=== PATIENT | female | born 1995 | race Caucasian/White ===

== ENCOUNTER 2016-07-23 17:18 | Inpatient (IN) | payer BC ==
[~2016-07-23] VITALS: Ht 157.5 cm; Wt 55.9 kg
[2016-07-23] MEDS ORDERED: PRENAT PO (17:33)
[2016-07-23] MEDS: LACTATED RINGER'S 1,000 ML IV SCH ×2 (18:27→23:01)
--- NOTE | 2016-07-23 18:50 | RADRPT ---
PROCEDURE: US OB AND ULTRASOUND CERVIX. CLINICAL INDICATION: Size and dates , vaginal bleeding TECHNIQUE: Multiple sonographic images of the pelvis and gravid uterus were obtained. The images were reviewed on a PACS workstation. Transvaginal images of the cervix were also obtained. COMPARISON: No prior studies are available for comparison. FINDINGS: The cervix is closed with a length of 3.4 cm. There is a single viable intrauterine gestation. Cardiac activity is present with 128 beats per min [place]. There is a vertex presentation. The placenta is anterior. There is no evidence for an abruption or placenta previa. There is a decreased amount of amniotic fluid with a MVP= 1.2 cm. Measurements were made in order to determine age. The results are as follows: BPD =5.2 cm HC =19.4 cm AC =17.3 cm FL =3.7 cm Estimated gestational age of approximately 21 weeks and 6 days based on ultrasound measurements. Clinical age: 22 weeks and 2 days. The estimated date of delivery is 11/27/16, based on ultrasound measurements. The EFW = 459 g, 25%, based on LMP age. RPTAT: AA IMPRESSION: Single viable intrauterine gestation of approximately 21 weeks and 6 days based on ultrasound measu rements. Oligohydramnios. .Farhan Cruz MD, MD Date Time Electronically viewed and signed by .Farhan Cruz MD, MD on 07/23/2016 18:50 .S/
[2016-07-23 19:07] LABS: ADD SCAN DIFF NO
[2016-07-23 19:13] LABS: BASOPHILS % 0.3 % (0.0-2.0); EOSINOPHILS # 0.1 10^3/ul (0.0-0.5); EOSINOPHILS % 0.9 % (0.0-7.0); HEMATOCRIT 30.2 % (37.0-47.0); HEMOGLOBIN 10.9 g/dl (12.0-16.0); LYMPHOCYTES # 2.6 10^3/ul (0.8-2.9); LYMPHOCYTES % 21.1 % (18.0-55.0); MEAN CORPUSCULAR HEMOGLOBIN 31.1 pg (29.0-33.0); MEAN CORPUSCULAR HGB CONC 36.1 g/dl (32.0-37.0); MEAN CORPUSCULAR VOLUME 86.3 fl (72.0-104.0); MEAN PLATELET VOLUME 10.1 fl (7.4-10.4); MONOCYTE # 0.7 10^3/ul (0.3-0.9); MONOCYTES % 5.8 % (0.0-13.0); NEUTROPHIL # 8.7 10^3/ul (1.6-7.5); NEUTROPHILS % 71.2 % (30.0-74.0); PLATELET COUNT 242 10^3/UL (140-415); RED CELL DISTRIBUTION WIDTH 13.5 % (11.5-14.5); WHITE BLOOD COUNT 12.2 10^3/ul (4.8-10.8)
[2016-07-23 19:16] LABS: ADD UMIC YES; URINE BILIRUBIN (Dip) NEGATIVE (NEGATIVE); URINE BLOOD (Dip) 2+ (NEGATIVE); URINE COLOR LT. YELLOW (YELLOW); URINE GLUCOSE (Dip) NEGATIVE (NEGATIVE); URINE KETONES (Dip) NEGATIVE (NEGATIVE); URINE LEUKOCYTE ESTERASE (Dip) NEGATIVE (NEGATIVE); URINE NITRITE (Dip) NEGATIVE (NEGATIVE); URINE TOTAL PROTEIN (Dip) NEGATIVE (NEGATIVE); URINE UROBILINOGEN (Dip) 0.2 E.U./dL (0.1-1.0)
[2016-07-23 19:34] LABS: BACTERIA,URINE FEW
[2016-07-23 21:58] VITALS: BP 107/60; RESP 18
--- NOTE | 2016-07-23 22:39 | HP ---
Date/Time of Note Date/Time of Note DATE: 07/23/16 TIME: 22:15 OB - History Hx of Present Free Text/Dictation 20 Year-old with SIUP at 22 2/7 weeks presents with a chief complaint of light vaginal bleeding since 10:00 this morning. She has been receiving her care with Dr. Navarro. She states good movement. She denies nausea, vomiting, shortness of breath, chest pain, and abdominal pain between contractions, headache, visual changes. : 2 Para: 0 Spontaneous : 0 Therapeutic : 1 Care: Good Care Ultrasounds: Normal mid trimester US Obstetrical Complications: None Medical Complications: None, Musculoskeletal Other Concerns: Past Family/Social History * Past Medical, Surgical, Family and Obstetric Histories reviewed from chart. OB Admission Exam Vital Signs Vital Signs Vital Signs Date Time Temp Pulse Resp B/P Pulse Ox O2 Delivery O2 Flow Rate FiO2 07/23/16 21:58 97.9 18 107/60 Room Air Physical Exam HEENT: WNL Heart: Rhythm Normal Lungs: Clear Extremities: Normal Cervical Dilatation: Fingertip Membranes: Ruptured Amniotic Fluid: Clear Heart Rate: 130's Accelerations: Accelerations Present Decelerations: No Decelerations Varibility: Moderate Date/Time Contractions Began: Speculum exam: Light vaginal bleeding mix with AF. Cervix looks FT Intensity: Mild Last 72 hours Lab Results CBC & BMP 07/23/16 18:45 OB Assessment/Plan Other plan: 20 Year-old with SIUP at 22 2/7 weeks with possible PPROM - FHR: No sign of metabolic acidosis- Category I - Continious EFM, toco - CBC, blood type and screen - U/A and U/C - Blood type: A pos - Ampi and erythro per protocol - Consult with perinatologist tomorrow. - Please see the orders - Follow by her primary OB- Dr. Navarro Admission, procedures, expectations, risks and possible complications have been discussed in detail with the patient. Risk of delivery of premature fetus discussed. JACOB ATKINSON Jul 23, 2016 22:31
[2016-07-23 22:40] VITALS: Ht 157.5 cm; Wt 55.9 kg
[2016-07-23] MEDS: AMPICILLIN 2 GM/NS (PMX) 100 ML IV SCH (23:01)
--- NOTE | 2016-07-23 23:29 | TRIAGE ---
OB Triage Datetime Report Generated by CPN: 07/23/2016 23:29 Datetime: 07/23/2016 22:08 Assessment Type: Admission Assessment Maternal Assessment Level of Consciousness: Fully Conscious DTR's/Clonus: DTRs 2+; No Clonus Headache: Denies Blurred Vision: No Respiratory Effort: Unlabored; Regular Rhythm; Equal Expansion Breath Sounds, Left: Clear and Equal Breath Sounds, Right: Clear and Equal Nausea/Vomiting: Denies RUQ Epigastric Pain: Denies Lower Extremities Edema: None Degree: None Upper Extremities Edema: None Degree: None Facial Edema: None Fall Risk Assessment History of Falling: (0) No Secondary Diagnosis: (0) No Ambulatory Aid: (0) Bedrest/Nurse Assist IV Therapy: (20) Yes Gait: (0) Normal/Bedrest/Immobile Mental Status: (0) Oriented to Own Ability Fall Score: 20 Fall Risk Score Definition: No Risk: No action required Pain Assessment Pain Scale: 0 Pain Presence: None/Denies Pain Type: N/A Membrane Status: Intact Datetime: 07/23/2016 22:07 Time of Arrival: 07/23/2016 21:43 EGA: 22.2 Arrived By: Stretcher Arrived From: TRIAGE Datetime: 07/23/2016 21:43 Stage of : Antepartum Datetime: 07/23/2016 21:24 Membrane Status: Intact Datetime: 07/23/2016 21:00 Labor Evaluation Frequency: IRRITABILITY NOTED Monitor Mode: External Duration (sec)2399: 30-50 Quality: Mild Pattern: Normal: <= 5 Contractions in 10 Minutes Resting Tone [place]: Relaxed Datetime: 07/23/2016 20:04 Vaginal Exam Dilatation (cms): 0.0 Effacement (%): 0 Station: -3 Exam By: HADSUKHI Vaginal Bleeding: Small Cervix, Consistency: Firm Cervix, Position: Posterior Datetime: 07/23/2016 20:00 Labor Evaluation Frequency: IRRITABILITY NOTED Duration (sec)2399: 30-50 Datetime: 07/23/2016 19:33 Assessment Type: Triage Maternal Assessment Level of Consciousness: Fully Conscious DTR's/Clonus: DTRs 2+; No Clonus Headache: Denies Blurred Vision: No Respiratory Effort: Unlabored; Regular Rhythm; Equal Expansion Breath Sounds, Left: Clear and Equal Breath Sounds, Right: Clear and Equal Nausea/Vomiting: Denies RUQ Epigastric Pain: Denies Lower Extremities Edema: None Degree: None Upper Extremities Edema: None Degree: None Facial Edema: None Fall Risk Assessment History of Falling: (0) No Secondary Diagnosis: (0) No Ambulatory Aid: (0) Bedrest/Nurse Assist IV Therapy: (0) No Gait: (0) Normal/Bedrest/Immobile Mental Status: (0) Oriented to Own Ability Fall Score: 0 Fall Risk Score Definition: No Risk: No action required Datetime: 07/23/2016 18:07 Exam By: DR SHAMSIAN Datetime: 07/23/2016 17:58 Exam By: SLAYNE Datetime: 07/23/2016 17:26 Stage of : OB Triage Assessment Type: Triage Maternal Assessment Level of Consciousness: Fully Conscious DTR's/Clonus: DTRs 2+; No Clonus Headache: Denies Blurred Vision: No Respiratory Effort: Unlabored; Regular Rhythm; Equal Expansion Breath Sounds, Left: Clear and Equal Breath Sounds, Right: Clear and Equal Nausea/Vomiting: Denies RUQ Epigastric Pain: Denies Lower Extremities Edema: None Degree: None Upper Extremities Edema: None Degree: None Facial Edema: None Temperature Route: Axillary Fall Risk Assessment History of Falling: (0) No Secondary Diagnosis: (0) No Ambulatory Aid: (0) Bedrest/Nurse Assist IV Therapy: (0) No Gait: (0) Normal/Bedrest/Immobile Mental Status: (0) Oriented to Own Ability Fall Score: 0 Fall Risk Score Definition: No Risk: No action required Labor Evaluation Frequency: APPLIED/ADJUSTED Monitor Mode: External Resting Tone [place]: Relaxed Heart Rate FHR Baseline Rate: 125 Monitor Mode: External US Variability: Moderate 6-25 bpm Decelerations: Variable Category: Category II Comments: U/S DUE TO GESTATIONAL AGE Pain Assessment Pain Scale: 3 Pain Presence: Intermittent Pain Type: Cramping Pain Location: Back Pain Goal: 3 Pain Relief Measures: Comfort Measures Datetime: 07/23/2016 17:24 Time of Arrival: 07/23/2016 17:15 EGA: 22.2 Arrived By: Ambulance Arrived From: Home Chief Complaint: C/O VAG BLEEDING, ABDOMINAL PAIN THAT IS INTERMITTENT, DENIES LEAKING OF FLUID Movement: Present Contractions: Irregular Rupture of Membranes: Denies Vaginal Bleeding: Small Vaginal Discharge: Present Recent Sexual Intercouse: Denies Abdominal Trauma: Not Applicable Patient Complaints: Contractions Provider Notified: DR ATKINSON Initial Plan: MONITOR, IV HYDRATION, CL, CBC, UA, VE,
[2016-07-24] MEDS: ERYTHROMYCIN LACTOBIONATE 500 MG in SOD CHLORIDE 0.9% 100 ML IVPB SCH ×4 (00:10→18:08)
[2016-07-24 02:39] LABS: BARBITURATES Negative (NEGATIVE); BENZODIAZEPINES Negative (NEGATIVE); CANNABINOIDS Negative (NEGATIVE); COCAINE Negative (NEGATIVE); OPIATES Negative (NEGATIVE)
[2016-07-24] MEDS: AMPICILLIN 2 GM/NS (PMX) 100 ML IV SCH ×3 (05:21→19:47)
--- NOTE | 2016-07-24 10:12 | QN ---
Documentation Comment 22+wks GA EFW 459 grams with suspected PPROM,No CTX +FM No VB No CTXs [place] No CTXs --->Perinatalogy consult ---->Neonatalogy consult BRYAN BUTTS M.D. Jul 24, 2016 10:11
[2016-07-24] MEDS ORDERED: BETAMET NA PHOS/AC(6 MG/ML) 5ML INJ ONE (11:05)
[2016-07-24] MEDS ORDERED: BETAMET NA PHOS/AC(6 MG/ML) 5ML INJ IM ONE (11:30)
--- NOTE | 2016-07-24 11:51 | RADRPT ---
PROCEDURE: US OB. CLINICAL INDICATION: Leaking fluid TECHNIQUE: Multiple sonographic images of the pelvis were obtained. Transabdominal imaging only w as performed. The images were reviewed on a PACS workstation. COMPARISON: OB ultrasound dated 07/23/2016 FINDINGS: There is a single live intrauterine gestation. Cardiac activity is present with 139 beats per minut e. position is breech. Measurements were made in order to determine age. The results are as follows: BPD = 5.08 cm HC = 19.35 cm AC = 17.68 cm FL = 3.32 cm. Estimated gestational age of approximately 21 weeks 4 days. The estimated date of delivery is 11/30/2016. The EFW = 434.97 g, 11.2 %ile. The placenta is left lateral. There is no evidence for an abruption or placenta previa. There are no adnexal masses. The MVP measures 1.2 cm. IMPRESSION: 1. Single live intrauterine gestation of approximately 21 weeks 4 days, by ultrasound criteria. 2. The estimated date of delivery is 11/30/2016. 3. The estimated weight is 434.97 g, 11.2 %ile. 4. Oligohydramnios. The MVP measures 1.2 cm. No significant interval change. RPTAT: HH .Comfort Rodriguez MD, Date Time Electronically viewed and signed by .Comfort Rodriguez MD, on 07/24/2016 11:50 .G/
[2016-07-24] MEDS: LACTATED RINGER'S 1,000 ML IV SCH ×2 (12:05→23:18)
[2016-07-24] MEDS: ONDANSETRON 4 MG INJ IV PRN ×2 (12:21→18:29)
[2016-07-24] MEDS ORDERED: BETAMET NA PHOS/AC(6 MG/ML) 5ML INJ IM SCH (12:30)
[2016-07-24] MEDS ORDERED: MAGNESIUM SULFATE 4 GM in SOD CHLORIDE 0.9% 100 ML IV ONE (13:30)
[2016-07-24] MEDS ORDERED: MAGNESIUM SULFATE 4 GM/100 ML 100 ML IVPB ONE (14:00)
[2016-07-24] MEDS: MAGNESIUM SULFATE 20 GM/500 ML 500 ML IV SCH ×2 (14:44→23:24)
--- NOTE | 2016-07-24 15:24 | CONS ---
DATE OF ADMISSION: 07/23/2016 DATE OF CONSULTATION: 07/24/2016 REASON FOR CONSULTATION: labor with rupture of membranes, bleeding. I was asked to consult by Dr. Ang. The patient is a 20-year-old 2, para 0, AB 1 (spont aneous at about 3 weeks), who is admitted today at 22-3/7 weeks with contractions, bleeding, and possible leaking of amniotic fluid. She was started on magnesium, as well as erythromycin and ampicillin, and has received the first dose of betamethasone. She denies illnesses, medications, smoking, drugs, alcohol. She had a ultrasound on 06/26/2016 showing oligohydramnios and hyperextension of the neck, but no other definite abnormalities shown: Estimated weight today has been communicated as 459 grams. I spoke extensively to her with also her grandmother in attendance, although the grandmother does no t understand [place], and also 2 nurses in attendance. I explained that at 22-3/7 weeks, the chance s of survival are probably less than 5%. If surviving, severe risk for neurodevelopmental problems as well as vision and other problems. If the leak stops and contractions stop and the survives maybe by close to 24 weeks, we ca n re-consult and re-discuss the options. The chance that this baby would be responding to resuscita tion are slim in view of the gestational age, as well as the history of oligohydramnios. The placen ta is anterior and not previa per the report I have received. I answered all the questions she could ask, and I would thank Dr. Ang for the opportunity to as sist in the care of his family. Dictated By: JUNITO FOREMAN/NTS Conf#: [id number] DID#: [id number] CC: BRYAN ANG MD;*EndCC*
[2016-07-24] MEDS: DOCUSATE SODIUM 100 MG CAP PO SCH (18:14)
[2016-07-25] MEDS: AMPICILLIN 2 GM/NS (PMX) 100 ML IV SCH ×4 (00:33→17:38)
[2016-07-25] MEDS: ERYTHROMYCIN LACTOBIONATE 500 MG in SOD CHLORIDE 0.9% 100 ML IVPB SCH ×4 (01:46→20:53)
[2016-07-25] MEDS: LACTATED RINGER'S 1,000 ML IV SCH ×3 (02:30→17:40)
[2016-07-25] MEDS ORDERED: MISOPROSTOL 200 MCG TAB PR PRN (08:00)
[2016-07-25] MEDS ORDERED: METHYLERGONOVINE 0.2 MG INJ IM PRN (08:00)
[2016-07-25] MEDS ORDERED: OXYTOCIN 30 UNITS/LR 500 ML IV PRN (08:00)
[2016-07-25] MEDS ORDERED: CARBOPROST 250 MCG INJ IM PRN (08:00)
[2016-07-25] MEDS ORDERED: CEFAZOLIN 2 GM/50 ML (PMX) 50 ML IV SCH (08:00)
[2016-07-25] MEDS ORDERED: CEFAZOLIN 2 GM/50 ML (PMX) 50 ML IVPB ONE (08:03)
[2016-07-25] MEDS ORDERED: FENTAnyl 50 MCG/ML VIAL ONE (08:13)
[2016-07-25] MEDS ORDERED: morphine SULFATE/PF (10 MG/10 ML) INJ ONE (08:13)
[2016-07-25] MEDS: DOCUSATE SODIUM 100 MG CAP PO SCH (09:00)
[2016-07-25] MEDS ORDERED: BUTORPHANOL 2 MG INJ IV PRN (11:00)
--- NOTE | 2016-07-25 12:35 | QN ---
Documentation Comment I was called in am by RN when arrived to the hospital that the patient having D cells during heart monitoring down to 80s. Attended to the patient room. Patient was anxious. heart rates in 80s-90s but was recovering 200s. Patient was receiving oxygen. Review of history and her records showed that this 20-year-old has a is 22 weeks and 4 days. She had been seen at [facility] perinatology and had the anatomy ultrasound that showed severe oligohydramnios since a month ago. She had to reports from the ultrasound that both consistent with severe oligohydramnios and poor outcome. Apparently patient had been previously counseled by maternal medicine in [facility] regarding termination of and underwent genetic counseling. She declined at that time. She presented to the hospital, with complaint of contractions and was started by OB attending communications specialist on magnesium as well as received steroid although the fetus was nonviable. She apparently initially desired to save the baby as much as possible. She also received neonatology consultation that had bee extensively counseled regarding poorn outcome due to extreme prematurity in the context of severe oligohydramnios in the assisted gestational age. When I attended to the patient bedside , abnormal tracing and heart rate discussed with the patient and patient desired to proceed with section. That for that reason patient was transferred to the OR during observation in the operating room. Noted that they heart rate baseline is 100s and she had intermittent decelerations. Speculum examination the operating room performed and the cervix was noted about half a centimeter dilated and there was about 40 cc of serosanguineous fluid in the vagina. Patient was feeling cramps. Patient was very anxious declined having epidural and general anesthesia due to maternal risks without improving outcome with emergent delivery at this gestational age. she was asking again regarding the outcome of current . I explained to the patient due to severe prematurity and the fact that the baby is not viable, section carries the risks to the mom at this point with no improved and outcome. At that point patient decided to proceed with expectant management understanding that there is possibility of intrauterine demise with expectant management as well as poor outcome if she goes to spontaneous labor or she has abruption. I also discussed this case with Dr. Page perinatologist on-call and I asked Dr. Page the to evaluate the patient and give us her recommendation. Patient agreed that magnesium be stopped, as well as monitoring.. She accepted at this point to proceed with expectant management, and monitoring for evidence of abruption or infection. All her questions were answered. She will also see Dr. Nguyễn as well as rn clinical trials again. Clinical adoption social worker was consulted to evaluate the patient due to severe anxiety and panic attack. MARCO JOHANSEN MD Jul 25, 2016 12:35
[2016-07-25] MEDS ORDERED: BETAMET NA PHOS/AC(6 MG/ML) 5ML INJ IM ONE (17:30)
--- NOTE | 2016-07-25 23:06 | CONS ---
DATE OF ADMISSION: 07/23/2016 DATE OF CONSULTATION: 07/25/2016 HISTORY OF PRESENT ILLNESS: I received a call this morning from ____ who was a hospitalist sharron figueroa that the heart tone was not reassuring and patient has some evidence of bleeding and she dec ided for the , per patient request, understanding that the gestational age of 22 weeks and 5 days, essentially, this is a previable fetus. Afterward, I received a call again and, finally aft er 2 or calls, the decision had been made to postpone the for now after I went to the hosp ital to see the patient. Essentially, the patient is a 20-year-old G1 at 22 weeks and 5 days. She presented yesterday morning with complaint of vaginal bleeding. Ultrasound showed the fetus to be 4 49 grams and maximum vertical pocket was 2.5 cm, which is oligohydramnic and TAPIA were positive, whi ch is significant for rupture of membrane. The patient was occasionally having some spotting, but n ot bleeding. She was started on antibiotics, ampicillin and erythromycin, by the admitting physician. Recommenda tion of ____, she was given betamethasone, given the fact that the baby has 449 gram weight, sirena se to viability, but still previable. Given the fact that she received betamethasone after she star emery having some cramping, I made the decision to start the patient on magnesium sulfate. That was a ll yesterday. Today after the patient was taken out of the operating room, ____ spoke to the go ramsey and the decision had been made to not monitor the baby, as the fetus is nonviable at this poin t. I spoke to the patient in detail about the fact that without monitoring, essentially we are not able to assess the wellbeing of the child and the fetus may unfortunately without us knowing it. However, given the previability and the very, very, very poor morbidity associated with a fetus of that age, she understood that and she agreed with the decision of not monitoring of the fetus. How ever, monitoring will be resumed when the age of viability is resumed, which is 24 weeks, or t he fetus reaches the estimated weight of 500 grams. After that, she is not clear if she would like to have a if there is a nonreassuring heart tone after the monitoring is resumed at 24 weeks or at 500 grams. The decision will be made at that time again. She does under stand that she will need to be delivered earlier, if there is any evidence of chorioamnionitis or wilbur sun has vaginal bleeding, which would be an indication of the abruption. I do not believe she has had small abruption, so far; however, she has stopped bleeding, so we can monitor the patient right now . She is stable and there is no evidence of chorioamnionitis. NICU has seen the patient. PAST MEDICAL HISTORY AND SURGICAL HISTORY: Not significant. The patient has some anxiety disorder. REVIEW OF SYSTEMS: Negative except for what is mentioned above. PHYSICAL EXAMINATION: VITAL SIGNS: Stable. Physical examination deferred. heart tone again is not being monitored. She is having small contractions, which she feels. ASSESSMENT: A 20-year-old G1 at 22 weeks and 5 days with some episodes of vaginal bleeding indicati ve of small placental abruption, currently without bleeding. She had ultrasounds at [facility] x2 which owed the severe oligohydramnios initially, many weeks ago, and she was counseled about termination o f the and she declined at that time. She is currently on antibiotics for the latency. Sh corinne received the first dose of betamethasone and she will be receiving the second dose today. Magnesi um sulfate was stopped, which I do agree with. Since if this is a placenta abruption, it is better not to be masked. At this point, given the rupture of the membrane, there might be some element of vaginal bleeding. Again, magnesium sulfate would mask the abruption and should be avoided. Current ly, patient is very stable. She is feeling the contractions for which she is receiving pain medicat ion. She does understand that not monitoring the baby at this point may result in demise without us knowing it; however, she does understand that this child is previable at this point and the morbidi ty associated with delivery at this time is extremely high and she does agree with the plan of not m onitoring the baby. Baby should be monitored at the viable age, which is 24 weeks gestation, or when the baby reaches 50 0 grams. She has premature rupture of the membranes positive since yesterday; however, she has had ol igohydramnios for more 2 or 3 weeks ago based on ultrasound that was done at [facility] and she had decline d termination of the given the poor outcome with oligohydramnios at that point. RECOMMENDATIONS: 1. Continue with antibiotics for 7 days. Delivery is recommended if there is any evidence of chori oamnionitis or she has bleeding, which would emphasize definitive abruption. Pain medications for c ontractions; however, tocolysis I do not recommend at this point. Monitoring should be started at 24 weeks or estimated weight of 500 grams, whichever is coming first. At that time, patient should make a decision as would she like to have a section. Given th e poor status, most likely, which would result from long time oligohydramnios and also prematu rity up until 26 weeks. At that time, then is necessary as gestational age is more ____ to get her out. Please monitor this patient extremely closely for any evidence of change in vital signs or, bleeding which would be the only indication for the abruption and, if that is the case, then the is necessary to remove the placenta as soon as possible before the patient has to undergo the conseque nces of the placental abruption. If there is any evidence of demise and patient is hemodynami yessy stable and there is no evidence of heavy bleeding, you can consider vaginal delivery for her. However, if any instability, then is the best option. In 1 week, I do recommend to consult NICU again. The family welfare social work professor is available and psych will be apparently consulted after the patient delivers. Dictated By: JOELLE LAST MD ST/NTS Conf#: [id number] DID#: [id number] CC: Labor and Delivery; BRYAN BUTTS MD;*EndCC*
[2016-07-26] MEDS: AMPICILLIN 2 GM/NS (PMX) 100 ML IV SCH ×4 (00:08→18:06)
[2016-07-26] MEDS: DEXTROSE 5%-LR 1,000 ML IV SCH ×2 (02:00→10:05)
[2016-07-26] MEDS: LACTATED RINGER'S 1,000 ML IV SCH ×3 (02:30→20:19)
[2016-07-26] MEDS: ERYTHROMYCIN LACTOBIONATE 500 MG in SOD CHLORIDE 0.9% 100 ML IVPB SCH ×3 (06:45→13:01)
[2016-07-26] MEDS: ONDANSETRON 4 MG INJ IV PRN ×2 (07:29→15:08)
[2016-07-26] MEDS: DOCUSATE SODIUM 100 MG CAP PO SCH (09:00)
--- NOTE | 2016-07-26 11:44 | PN ---
Date/Time of Note Date/Time of Note DATE: 07/26/16 TIME: 11:31 OB Subjective Subjective Subjective July 26, 2016 Clinical consult This patient is a 20 years old primigravida 22 weeks and 6 days now this patient was transferred from [facility] to [facility] due to early and severe oligohydramnios as well as premature rupture of membrane This patient was seen in [facility] perinatology and fairly extensive study revealed a severe oligohydramnios the patient was consult regarding the termination of the but she did not accept. She was also offered to have a section due to the fact that the patient the baby does not have any chance for survival is born at this stage and with the obvious rupture of membrane and the chance of infection. She accepted to have a section she was taken to the area operating room and placed on the operative table once more she was informed that the is being done not to save the fetus but to terminate the to prevent any further complications and infections or bleeding. At this at this point patient refused to have a anesthesia under epidural general and decided not to have a section anyway she was transported transported back into the room in OB area. Dr. Page our perinatologist also discussed with her all angles of her condition including very poor chance of survival of the baby if it was born now or even a week from now . The plan is to wait for the baby to grow up to 500 g over 24 completed weeks in which case she will be treated as a patient with early labor. If any evidence of infection or hemorrhage this will be terminated either by section or induction of labor. These points and plan were described with the patient clearly and repeatedly. Laboratory Tests Test 07/25/16 11:50 Magnesium Level 3.3mg/dl Current Medications Medications (Trade) Dose Ordered Sig/Nahomi Route PRN Reason Start Time Stop Time Status Last Admin Dose Admin Lactated Ringer's 1,000 ml @ 125 mls/hr Q8H IV 07/23/16 18:30 07/25/16 17:40 Ampicillin 100 ml @ 100 mls/hr Q6 IV 07/23/16 22:30 07/26/16 06:45 Erythromycin Lactobionate/ Sodium Chloride (Erythromycin Lactobionate/NS) 100 ml @ 100 mls/hr Q6 IVPB 07/24/16 00:00 07/26/16 07:31 Docusate Sodium (Colace) 100 mg DAILY PO 07/24/16 09:00 07/24/16 18:14 Betamethasone Acet/Betameth SodPhos (Celestone Soluspan) 12 mg ONCE ONCE IM 07/24/16 11:30 07/24/16 11:30 DC Betamethasone Acet/Betameth SodPhos (Celestone Soluspan) 30 mg STK-MED ONCE .ROUTE 07/24/16 11:05 07/24/16 11:06 DC Betamethasone Acet/Betameth SodPhos (Celestone Soluspan) 12 mg ONCE IM 07/24/16 12:30 07/24/16 20:00 DC 07/24/16 12:04 Ondansetron HCl 4 mg 4 mg Q4H PRN IV NAUSEA AND/OR VOMITING 07/24/16 12:30 07/26/16 07:29 Magnesium Sulfate 4 gm/Sodium Chloride 108 ml @ 27 mls/hr ONCE ONCE IV 07/24/16 13:30 07/24/16 13:37 DC Magnesium Sulfate 500 ml @ 50 mls/hr Q10H IV 07/24/16 13:30 07/25/16 10:51 DC 07/24/16 23:24 Magnesium Sulfate 100 ml @ 200 mls/hr ONCE ONCE IVPB 07/24/16 14:00 07/24/16 14:29 DC 07/24/16 13:50 Cefazolin Sodium/ Dextrose 50 ml @ 100 mls/hr ONCE IV 07/25/16 08:00 07/25/16 08:58 DC Oxytocin/Lactated Ringer's 500 ml @ 0 mls/hr ONCE PRN IV For Hemorrhage Management 07/25/16 08:00 07/25/16 08:58 DC Methylergonovine Maleate (Methergine) 0.2 mg ONCE PRN IM VAGINAL BLEEDING 07/25/16 08:00 07/25/16 08:58 DC Carboprost Tromethamine (Hemabate) 250 mcg ONCE PRN IM VAGINAL BLEEDING 07/25/16 08:00 07/25/16 08:58 DC Misoprostol 1000 mcg 1,000 mcg ONCE PRN [place] VAGINAL BLEEDING 07/25/16 08:00 07/25/16 08:58 DC Cefazolin Sodium/ Dextrose (Ancef 2 Gm/50 ml (Pmx)) 50 ml @ ud STK-MED ONCE IVPB 07/25/16 08:03 07/25/16 08:04 DC Fentanyl (Sublimaze) 100 mcg STK-MED ONCE .ROUTE 07/25/16 08:13 07/25/16 08:14 DC Morphine Sulfate (Duramorph) 10 mg STK-MED ONCE .ROUTE 07/25/16 08:13 07/25/16 08:14 DC Butorphanol Tartrate (Stadol) 2 mg Q2H PRN IV PAIN 07/25/16 11:00 Betamethasone Acet/Betameth SodPhos 12 mg 12 mg ONCE ONCE IM 07/25/16 17:30 07/25/16 17:31 DC 07/25/16 17:19 Dextrose/Lactated Ringer's (D5-Lr) 1,000 ml @ 125 mls/hr Q8H IV 07/26/16 10:00 07/26/16 10:05 We will monitor her vital signs but not the heart tone End of dictation CYNDY MEJIA MD Jul 26, 2016 11:43
[2016-07-26] MEDS: GENTAMICIN 80 MG/NS (PMX) 50 ML IVPB SCH (22:16)
[2016-07-27] MEDS: AMPICILLIN 2 GM/NS (PMX) 100 ML IV SCH ×5 (00:14→23:53)
[2016-07-27] MEDS: GENTAMICIN 80 MG/NS (PMX) 50 ML IVPB SCH ×3 (06:10→21:43)
[2016-07-27] MEDS: LACTATED RINGER'S 1,000 ML IV SCH ×3 (06:11→21:26)
[2016-07-27] MEDS: DOCUSATE SODIUM 100 MG CAP PO SCH ×2 (09:00→16:49)
--- NOTE | 2016-07-27 14:48 | RADRPT ---
PROCEDURE: US OB. CLINICAL INDICATION: labor TECHNIQUE: Multiple sonographic images of the pelvis were obtained. Transabdominal imaging only w as performed. The images were reviewed on a PACS workstation. COMPARISON: 07/24/2016 FINDINGS: Single intrauterine gestation. Cephalic presentation. heart rate is 127 bpm. Measurements were made in order to determine age. The results are as follows: BPD = 5.08 cm HC = 19.59 cm AC = 16.80 cm FL = 3.34 cm Gestational age is 21 weeks 3 days and NITHIN is 12/04/2016 by ultrasound criteria. Gestational age is 22 weeks 6 days and NITHIN is 11/24/2016 by LMP. EFW = 411 g +/- 62 g (less than 3% by LMP %). The placenta is left lateral. There is no evidence for an abruption or placenta previa. EDUARD measures 2.6 cm, below normal limits. Maximum vertical pocket of fluid measures 0.9 cm. IMPRESSION: 1. Single live intrauterine gestation of approximately 21 weeks 3 days by ultrasound criteria. 2. There is severe oligohydramnios - EDUARD measures 2.6 cm. RPTAT: JJ .Abe Hodgson MD, MD Date Time Electronically viewed and signed by .Abe Hodgson MD, on 07/27/2016 14:48 .R/
--- NOTE | 2016-07-27 15:32 | QN ---
Documentation Comment 22+6wks GA ,the most recent EFW is 411 grams +FM, Currently no complaints VS stable Gen NAD Pelvic Deffered --->continue management as per perinatalogist --->patient's questions answered BRYAN BUTTS M.D. Jul 27, 2016 15:32
[2016-07-27] MEDS ORDERED: BISACODYL 10 MG SUPP PR PRN (21:30)
[2016-07-27] MEDS: MAGNESIUM HYDROXIDE 30ML CUP PO PRN (21:43)
[2016-07-28] MEDS: LACTATED RINGER'S 1,000 ML IV SCH ×3 (02:30→18:53)
[2016-07-28] MEDS: GENTAMICIN 80 MG/NS (PMX) 50 ML IVPB SCH ×3 (05:38→22:06)
[2016-07-28] MEDS: AMPICILLIN 2 GM/NS (PMX) 100 ML IV SCH ×5 (06:16→23:49)
[2016-07-28] MEDS: MAGNESIUM HYDROXIDE 30ML CUP PO PRN (08:56)
[2016-07-28] MEDS: DOCUSATE SODIUM 100 MG CAP PO SCH (08:56)
--- NOTE | 2016-07-28 13:56 | QN ---
Documentation Comment Laborist progress note: 20 y.o. with an IUP at 23 weeks with severe oligohydramnios present since at least 05/22, questionable PPROM, admitted with vaginal bleeding and contractions. Pt has been extensively counseled re: the grim prognosis for this baby with oligohydramnios at such an early age at [facility] and here and she is adamantly wanting to continue the . She is not having any more bleeding and contracts on occasion. Currently the plan is to have the pt on bedrest with IV hydration and NOT monitored until she reached 24 weeks and then will commence monitoring as she will then be considered technically viable. She has received steroids and had some magnesium as well. Her VS's are stable. The pt is only complaining of severe constipation. She has received milk of magnesium but only a few very hard balls of stool came out. Will try magnesium citrate now. P; Continue care. Commence monitoring at 24 weeks. Magnesium citrate, one bottle, now. JESSIE MONTELONGO MD Jul 28, 2016 13:56
[2016-07-28] MEDS ORDERED: MAGNESIUM CITRATE 300 ML BTL PO ONE (14:00)
[2016-07-29] MEDS: LACTATED RINGER'S 1,000 ML IV SCH ×4 (03:48→23:57)
[2016-07-29] MEDS: GENTAMICIN 80 MG/NS (PMX) 50 ML IVPB SCH ×3 (05:41→21:49)
[2016-07-29] MEDS: AMPICILLIN 2 GM/NS (PMX) 100 ML IV SCH ×4 (06:30→23:58)
[2016-07-29] MEDS: DOCUSATE SODIUM 100 MG CAP PO SCH (09:04)
--- NOTE | 2016-07-29 15:59 | QN ---
Documentation Comment Progress note: 20 y.o. with an IUP at 23w 1d with severe oligohydramnios present since at least 05/22, questionable PPROM, admitted with vaginal bleeding and contractions. Pt has been extensively counseled re: the grim prognosis for this baby with oligohydramnios at such an early age at [facility] and here and she is adamantly wanting to continue the . She is not having any more bleeding and contracts on occasion. Currently the plan is to have the pt on bedrest with IV hydration, IV antibiotics until complete a 7 day course and NOT monitored until she reached 24 weeks and then will commence monitoring as she will then be considered technically viable. She has received steroids and had some magnesium as well. Her VS's are stable. The pt had constipation but yesterday got cleaned out from the dose of magnesium citrate. P; Continue care. Commence monitoring at 24 weeks. Cont. ABX til complete 7 days. JESSIE MONTELONGO MD Jul 29, 2016 15:59
[2016-07-30] MEDS: GENTAMICIN 80 MG/NS (PMX) 50 ML IVPB SCH ×3 (05:38→22:15)
[2016-07-30] MEDS: AMPICILLIN 2 GM/NS (PMX) 100 ML IV SCH ×4 (06:30→23:41)
[2016-07-30] MEDS: DOCUSATE SODIUM 100 MG CAP PO SCH (09:01)
[2016-07-30] MEDS: LACTATED RINGER'S 1,000 ML IV SCH ×3 (11:54→23:40)
[2016-07-31] MEDS: GENTAMICIN 80 MG/NS (PMX) 50 ML IVPB SCH (05:38)
[2016-07-31] MEDS: AMPICILLIN 2 GM/NS (PMX) 100 ML IV SCH (05:38)
[2016-07-31] MEDS: FERROUS SULFATE (EC) 325 MG TAB PO SCH (09:19)
[2016-07-31] MEDS: DOCUSATE SODIUM 100 MG CAP PO SCH (09:19)
[2016-07-31] MEDS: MULTIVIT/MIN/FOLATE/IRON/PREN TAB PO SCH (09:19)
[2016-07-31] MEDS: LACTATED RINGER'S 1,000 ML IV SCH ×2 (11:08→18:30)
--- NOTE | 2016-07-31 18:38 | PN ---
Date/Time of Note Date/Time of Note DATE: 07/31/16 TIME: 18:33 OB Subjective Subjective Subjective July 31, 2016 Hospital consult This patient is a 20 years old primigravida 23 weeks and 3 days now this patient was transferred from [facility] to [facility] due to early and severe oligohydramnios as well as premature rupture of membrane This patient was seen in [facility] perinatology and fairly extensive study revealed a severe oligohydramnios. Patient was consult regarding the termination of the but she did not accept. She was also offered to have a section due to the fact that the baby did not seem to have any chance of survival if born at this stage and with the obvious rupture of membrane and the chance of infection. She accepted to have a section she was taken to the operating room and placed on the operative table once more she was informed that the is being done not to save the fetus but to terminate the to prevent any further complications and infections or bleeding, infarct it would be to protect the mother. Current Medications Medications (Trade) Dose Ordered Sig/Nahomi Route PRN Reason Start Time Stop Time Status Last Admin Dose Admin Lactated Ringer's 1,000 ml @ 125 mls/hr Q8H IV 07/23/16 18:30 Future Hold 07/31/16 11:08 Ampicillin 100 ml @ 100 mls/hr Q6 IV 07/23/16 22:30 07/31/16 10:54 DC 07/31/16 05:38 Erythromycin Lactobionate/ Sodium Chloride (Erythromycin Lactobionate/NS) 100 ml @ 100 mls/hr Q6 IVPB 07/24/16 00:00 07/26/16 14:31 DC 07/26/16 13:01 Docusate Sodium (Colace) 100 mg DAILY PO 07/24/16 09:00 07/31/16 09:19 Betamethasone Acet/Betameth SodPhos (Celestone Soluspan) 12 mg ONCE ONCE IM 07/24/16 11:30 07/24/16 11:30 DC Betamethasone Acet/Betameth SodPhos (Celestone Soluspan) 30 mg STK-MED ONCE .ROUTE 07/24/16 11:05 07/24/16 11:06 DC Betamethasone Acet/Betameth SodPhos (Celestone Soluspan) 12 mg ONCE IM 07/24/16 12:30 07/24/16 20:00 DC 07/24/16 12:04 Ondansetron HCl 4 mg 4 mg Q4H PRN IV NAUSEA AND/OR VOMITING 07/24/16 12:30 07/26/16 15:08 Magnesium Sulfate 4 gm/Sodium Chloride 108 ml @ 27 mls/hr ONCE ONCE IV 07/24/16 13:30 07/24/16 13:37 DC Magnesium Sulfate 500 ml @ 50 mls/hr Q10H IV 07/24/16 13:30 07/25/16 10:51 DC 07/24/16 23:24 Magnesium Sulfate 100 ml @ 200 mls/hr ONCE ONCE IVPB 07/24/16 14:00 07/24/16 14:29 DC 07/24/16 13:50 Cefazolin Sodium/ Dextrose 50 ml @ 100 mls/hr ONCE IV 07/25/16 08:00 07/25/16 08:58 DC Oxytocin/Lactated Ringer's 500 ml @ 0 mls/hr ONCE PRN IV For Hemorrhage Management 07/25/16 08:00 07/25/16 08:58 DC Methylergonovine Maleate (Methergine) 0.2 mg ONCE PRN IM VAGINAL BLEEDING 07/25/16 08:00 07/25/16 08:58 DC Carboprost Tromethamine (Hemabate) 250 mcg ONCE PRN IM VAGINAL BLEEDING 07/25/16 08:00 07/25/16 08:58 DC Misoprostol 1000 mcg 1,000 mcg ONCE PRN [place] VAGINAL BLEEDING 07/25/16 08:00 07/25/16 08:58 DC Cefazolin Sodium/ Dextrose (Ancef 2 Gm/50 ml (Pmx)) 50 ml @ ud STK-MED ONCE IVPB 07/25/16 08:03 07/25/16 08:04 DC Fentanyl (Sublimaze) 100 mcg STK-MED ONCE .ROUTE 07/25/16 08:13 07/25/16 08:14 DC Morphine Sulfate (Duramorph) 10 mg STK-MED ONCE .ROUTE 07/25/16 08:13 07/25/16 08:14 DC Butorphanol Tartrate (Stadol) 2 mg Q2H PRN IV PAIN 07/25/16 11:00 Betamethasone Acet/Betameth SodPhos 12 mg 12 mg ONCE ONCE IM 07/25/16 17:30 07/25/16 17:31 DC 07/25/16 17:19 Dextrose/Lactated Ringer's 1,000 ml @ 125 mls/hr Q8H IV 07/26/16 10:00 07/27/16 21:38 DC 07/26/16 10:05 Gentamicin Sulfate (Gentamicin) 50 ml @ 104 mls/hr Q8H IVPB 07/26/16 22:00 07/31/16 10:55 DC 07/31/16 05:38 Magnesium Hydroxide (Milk Of Mag) 30 ml BID PRN PO CONSTIPATION 07/27/16 21:30 07/28/16 08:56 Bisacodyl (Dulcolax Supp) 10 mg DAILY PRN [place] CONSTIPATION 07/27/16 21:30 Magnesium Citrate (Citroma) 300 ml NOW ONCE PO 07/28/16 14:00 07/28/16 14:01 DC 07/28/16 14:16 Miscellaneous Information (*Rx Drug Level Order Reminder*) GENTAMICIN TROUGH AT 2... ONCE XX 07/29/16 18:00 07/29/16 23:30 DC Prenat Multivit/ Jewel Diameter Gauger/Iron/Folic Ac ( S) 1 tab DAILY PO 07/31/16 09:00 07/31/16 09:19 Ferrous Sulfate (Ferrous Sulfate (Ec)) 325 mg DAILY PO 07/31/16 09:00 07/31/16 09:19 Today she is stable no fever.. heart tone is normal On exam her abdomen is soft. No evidence of contraction. heart tone is normal No calf tenderness Disposition: Her antibiotic was stopped this morning. She will continue hospital bed rest at least till age of 26 week CYNDY MEJIA MD Jul 31, 2016 18:37
--- NOTE | 2016-08-01 09:19 | QN ---
Documentation Comment Laborist- Antepartum Rounding S: Pt doing well. Denies c/o- no further vaginal bleeding, no LOF, rare UCs. Notices FM moreso at night. O: 98.1 103/42 77 Gen: asleep in bed, easily arousable, pleasant CV: RRR, nl s1s2 Resp: CTAB Abd: soft, NT, NABS Ext: BLE symmetric, nontender, no edema HD#10 for 20yo at 23+4 with anxiety admitted with vaginal bleeding and ? PPROM in the setting of known severe oligohydramnios (EDUARD 2.6cm). No e/o PTL, abruption or chorioamnionitis. Pt s/p Magnesium Sulfate, latency Abx and BMZ course. ->continue expectant management ->Encourage some ambulation, SCDs while in bed ->Re-consult NICU at 24wks GA when resuming monitoring per MFM recommendations ->Repeat growth U/S at 24wks as well for EFW ->Pt s/p MFM consult and extensive counseling regarding poor prognosis of fetus. Pt would like to continue ->Pt s/p [employer] STORE CLERK consult for extensive psychosocial concerns JOSE KUMAR MD Aug 01, 2016 09:19
[2016-08-01] MEDS: FERROUS SULFATE (EC) 325 MG TAB PO SCH (09:22)
[2016-08-01] MEDS: DOCUSATE SODIUM 100 MG CAP PO SCH (09:22)
[2016-08-01] MEDS: MULTIVIT/MIN/FOLATE/IRON/PREN TAB PO SCH (09:22)
[2016-08-02] MEDS: DOCUSATE SODIUM 100 MG CAP PO SCH (08:55)
[2016-08-02] MEDS: FERROUS SULFATE (EC) 325 MG TAB PO SCH (08:55)
[2016-08-02] MEDS: MULTIVIT/MIN/FOLATE/IRON/PREN TAB PO SCH (08:55)
[2016-08-03] MEDS: DOCUSATE SODIUM 100 MG CAP PO SCH (09:12)
[2016-08-03] MEDS: FERROUS SULFATE (EC) 325 MG TAB PO SCH (09:13)
[2016-08-03] MEDS: MULTIVIT/MIN/FOLATE/IRON/PREN TAB PO SCH (09:13)
--- NOTE | 2016-08-03 10:55 | QN ---
Documentation Comment Laborist- Antepartum Rounding S: Pt doing well. Reports having a little fluid and vaginal bleeding yesterday, none today. Reports fetus is active. O: afebrile 115/54 90 FHT: 132bpm Gen: pleasant, NAD CV: RRR, nl s1s2 Resp: CTAB Abd: soft, NT, NABS Ext: BLE symmetric, nontender, no edema HD#12 for 20yo at 23+6 with anxiety admitted with vaginal bleeding and ? PPROM in the setting of known severe oligohydramnios (EDUARD 2.6cm). No e/o PTL, abruption or chorioamnionitis. Pt s/p Magnesium Sulfate, latency Abx and BMZ course. ->Continue expectant management ->SCDs while in bed ->Re-consult NICU tomorrow at 24wks GA when resuming monitoring per MFM recommendations ->Repeat growth U/S tomorrow for EFW ->Pt s/p MFM consult and extensive counseling regarding poor prognosis of fetus. Pt would like to continue ->Pt s/p PARISH NURSE consult for extensive psychosocial concerns Plan d/w pt. Questions answered to her satisfaction. JOSE KUMAR MD Aug 03, 2016 10:55
[2016-08-04] MEDS: DOCUSATE SODIUM 100 MG CAP PO SCH ×2 (02:30→09:14)
--- NOTE | 2016-08-04 09:13 | RADRPT ---
PROCEDURE: Obstetrical ultrasound. CLINICAL INDICATION: , evaluation. Pelvic pain. labor TECHNIQUE: Transabdominal sonographic images of the pelvis are obtained. COMPARISON: OB ultrasound 07/27/2016 FINDINGS: Single intrauterine gestation. There is a cephalic presentation. Measurements were made in order to determine age. The results are as follows: BPD = 5.41 cm HC = 20.18 cm AC = 16.52 cm FL = 2.96 cm Heart rate = 138 beats per minute The placenta is left lateral. There is no evidence for an abruption or placenta previa. Ovaries are not visualized. IMPRESSION: Single intrauterine gestation of approximately 21 weeks 30 days by ultrasound criteria. Estimated weight = 371 g, previously 411 g; <3 percentile for estimated ultrasound age. Decreased estimated weight in comparison to the previous examination. RPTAT: AADD .Jim Soto MD, Date Time Electronically viewed and signed by .Jim Soto MD, on 08/04/2016 09:13 .B/
[2016-08-04] MEDS: MULTIVIT/MIN/FOLATE/IRON/PREN TAB PO SCH (09:14)
[2016-08-04] MEDS: FERROUS SULFATE (EC) 325 MG TAB PO SCH (09:14)
--- NOTE | 2016-08-04 12:31 | QN ---
Documentation Comment Laborist oging HD #13 20 y.o. A1 with an IUP at 24 weeks today with known oligohydramnios since early May and questionable PPROM. Pt has an anxiety disorder. On admission she had a positive ROM-PLUS test. Pt has received betamethasone, antibiotics and magnesium and is currently just on bedrest with SCD's. The plan had been to have her on bedrest w/o monitoring until she reached 24 weeks which is today. An EFW done this AM shows the baby at 371 grams, which is actually less that the prior US weight of 411 grams done on admission. Pt remains afebrile and with a non-tender belly i.e no signs of amnionitis. She reports occasional "leaking" and slight vaginal bleeding, the last time being 2 days ago.Will re- consult both NICU and perinatology to verify the plan now that she is 24 weeks but with no change in condition. Need a clear plan in the event of distress. Will refrain from monitoring until that time. Pt has been extensively counseled prior to this admission and during this admission about the poor prognosis for this baby and the pt adamantly wishes to proceed with the . JESSIE MONTELONGO MD Aug 04, 2016 12:31
--- NOTE | 2016-08-04 15:02 | QN ---
Documentation Comment Neonatology consult follow-up consult I was asked to speak to this mother by Dr. Abreu. This is a 20-year-old 2 para 0 AB 1 mother now at 24-0/7 weeks gestation who has been hospitalized over the last 2 weeks for oligohydramnios possible leaking of membranes vaginal bleeding. Mother has had a course of antibiotics and steroids. Her ultrasound follow-up which was done to shows that the fetus has lost weight going from 459 g down to 371 g by this last examination. I spoke with the mother with the bedside nurse in attendance. I explained to her that the size of the infant 371 g puts it below threshold for biomedical interventions that we have available including intubation and line placement. This makes a viability will probably not possible since we do not have endotracheal tubes to allow us to provide ventilatory support or the IVs to allow us to have central lines nutritional support. Also of the lack of weight gain is concerning with the continued oligohydramnios for hypoplastic lungs and maldevelopment or some possible genetic issue. I spoke to the mother regarding the risks associated with 24 week delivery with normal growth as well as normal amniotic fluid including respiratory distress syndrome apnea prematurity patent ductus arteriosus hypotension necrotizing enterocolitis and intraventricular hemorrhage. 24 weeks usual survivability scores without all the other concomitant risk factors as mother has a probably between 20 and 30% with limited normal result probably in the 1-5% of all infants born at this gestational age. Concerning of course is the fact to be related to oligohydramnios and the probable pulmonary hypertension making it difficult or impossible to provide adequate ventilatory support. I feel the best course at this time is to have a perinatology consult was you have already ordered and then we may need to have a conference with all of us together to decide how to proceed with this very difficult and complicated case. You have any further questions please do not hesitate to contact [facility] neonatology service. ZOHAIB BANG MD Aug 04, 2016 15:02
[2016-08-05] MEDS ORDERED: VITAMIN A & D 5 GM OINT PACKET TOP PRN (01:00)
[2016-08-05] MEDS: MULTIVIT/MIN/FOLATE/IRON/PREN TAB PO SCH (08:45)
[2016-08-05] MEDS: FERROUS SULFATE (EC) 325 MG TAB PO SCH (08:45)
[2016-08-05] MEDS: DOCUSATE SODIUM 100 MG CAP PO SCH (08:45)
--- NOTE | 2016-08-05 13:00 | PERINOTE ---
Date/Time of Note Date/Time of Note DATE: 08/05/16 TIME: 12:51 Assessment/Recommendations Other Assessments Severe oligohydramnios contractions with possible rupture of membranes, currently stable Recommendations: I discussed with the patient my expectation that the fetus would not benefit from delivery. She expressed that she did not want delivery for indications. Under these circumstances I would not monitor the fetus except for occasional checks for heart tones. If there is an intrauterine demise, I would proceed with induction of labor. OB Subjective Free Text/Dictaton Patient referred for repeat consultation for delivery planning. Patient was seen at [facility] in the first trimester and found to have severe oligohydramnios. This has persisted to the present. The cause for this is not known, but renal agenesis would be expected to be associated with oligohydramnios after 16 weeks GA. anatomy evaluation has been limited by the very reduced AF volume. 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 Note: I reviewed the images of the exams done on 08/04 and 07/27. The measurements done 08/04 appear to be correct. The AC done on 07/27 appears to be too large by a considerable amount. I would use the EFW of 08/04. HD# 14 IUP @ 14W1D Current Medications Current Medications Lactated Ringer's (Lr) 1,000 ml @ 125 mls/hr Q8H IV Last administered on 11:08; Admin Dose 125 MLS/HR; Start 07/23/16 at 18:30; Status Future Hold Docusate Sodium (Colace) 100 mg DAILY PO Last administered on 08/05/16 08:45; Admin Dose 100 MG; Start 07/24/16 at 09:00 Ondansetron HCl (Zofran Inj) 4 mg Q4H PRN IV NAUSEA AND/OR VOMITING Last administered on 07/26/16 15:08; Admin Dose 4 MG; Start 07/24/16 at 12:30 Butorphanol Tartrate (Stadol) 2 mg Q2H PRN IV PAIN; Start 07/25/16 at 11:00 Magnesium Hydroxide (Milk Of Mag) 30 ml BID PRN PO CONSTIPATION Last administered on 07/28/16 08:56; Admin Dose 30 ML; Start 07/27/16 at 21:30 Bisacodyl (Dulcolax Supp) 10 mg DAILY PRN [place] CONSTIPATION; Start 07/27/16 at 21 :30 Prenat Multivit/ [place]/Iron/Folic Ac ( S) 1 tab DAILY PO Last administered on 08/05/16 08:45; Admin Dose 1 TAB; Start 07/31/16 at 09:00 Ferrous Sulfate (Ferrous Sulfate (Ec)) 325 mg DAILY PO Last administered on 08:45; Admin Dose 325 MG; Start 07/31/16 at 09:00 Vitamin A/Vitamin D (Vitamin A & D Oint) 1 applic PRN PRN TOP dry lips; Start 08/05/16 at 01:00 OB Admission Exam Physical Exam Vitals: T=98 Abdomen: WNL Copies To: CC: JESSIE MONTELONGO MD,YOLANDE Friedman MD Aug 05, 2016 13:00
--- NOTE | 2016-08-05 14:15 | RADRPT ---
PROCEDURE: US OB. CLINICAL INDICATION: Premature ruptured membrane. No heart tones detected TECHNIQUE: Pelvic ultrasound performed for biophysical profile. COMPARISON: None FINDINGS: Single intrauterine gestation present with heart rate at 123 beats per minute. Presentation is reema ch. Placenta is fundal grade 1. no measurable amount of fluid is seen. IMPRESSION: 1. heart tones are detected at 123 bpm. 2. No measurable fluid identified surrounding the fetus. RPTAT: EE .Leyda Terrazas MD, MD Date Time Electronically viewed and signed by .Leyda Terrazas MD, MD on 08/05/2016 14:14 .M/
--- NOTE | 2016-08-05 14:20 | QN ---
Documentation Comment 24+wks GA with Severe oligohydramnios,No CTX +FM No VB No CTXs [place] No CTXs ---->mamagment as per perinatalogist () ----->patient's questions answered BRYAN BUTTS M.D. Aug 05, 2016 14:20
[2016-08-06] MEDS: DOCUSATE SODIUM 100 MG CAP PO SCH (08:44)
[2016-08-06] MEDS: MULTIVIT/MIN/FOLATE/IRON/PREN TAB PO SCH (08:44)
[2016-08-06] MEDS: FERROUS SULFATE (EC) 325 MG TAB PO SCH (08:44)
--- NOTE | 2016-08-06 17:05 | QN ---
Documentation Comment pt doing well no complaints vss exam wnl +fht a/p previable oligo/pprom previable-no c/section continue care ISHAAN PURDY MD Aug 06, 2016 17:05
[2016-08-07 06:41] LABS: ADD SCAN DIFF NO
[2016-08-07 06:55] LABS: BASOPHILS % 0.2 % (0.0-2.0); EOSINOPHILS # 0.2 10^3/ul (0.0-0.5); EOSINOPHILS % 1.3 % (0.0-7.0); HEMATOCRIT 32.7 % (37.0-47.0); HEMOGLOBIN 10.9 g/dl (12.0-16.0); LYMPHOCYTES # 2.7 10^3/ul (0.8-2.9); LYMPHOCYTES % 18.1 % (18.0-55.0); MEAN CORPUSCULAR HEMOGLOBIN 30.5 pg (29.0-33.0); MEAN CORPUSCULAR HGB CONC 33.3 g/dl (32.0-37.0); MEAN CORPUSCULAR VOLUME 91.6 fl (72.0-104.0); MEAN PLATELET VOLUME 9.7 fl (7.4-10.4); MONOCYTE # 1.4 10^3/ul (0.3-0.9); MONOCYTES % 9.4 % (0.0-13.0); NEUTROPHILS % 67.4 % (30.0-74.0); PLATELET COUNT 203 10^3/UL (140-415); RED BLOOD COUNT 3.57 10^6/ul (4.20-5.40); WHITE BLOOD COUNT 14.8 10^3/ul (4.8-10.8)
[2016-08-07] MEDS: MULTIVIT/MIN/FOLATE/IRON/PREN TAB PO SCH (08:53)
[2016-08-07] MEDS: DOCUSATE SODIUM 100 MG CAP PO SCH (08:53)
[2016-08-07] MEDS: FERROUS SULFATE (EC) 325 MG TAB PO SCH (08:53)
--- NOTE | 2016-08-07 16:31 | QN ---
Documentation Comment Laboratory Tests Test 08/07/16 05:44 White Blood Count 14.810^3/ul Red Blood Count 3.5710^6/ul Hemoglobin 10.9g/dl Hematocrit 32.7% Mean Corpuscular Volume 91.6fl Mean Corpuscular Hemoglobin 30.5pg Mean Corpuscular Hemoglobin Concent 33.3g/dl Red Cell Distribution Width 14.0% Platelet Count 41921^3/UL Mean Platelet Volume 9.7fl Neutrophils % 67.4% Lymphocytes % 18.1% Monocytes % 9.4% Eosinophils % 1.3% Basophils % 0.2% Nucleated Red Blood Cells % 0.0/100WBC Neutrophils # 10.010^3/ul Lymphocytes # 2.710^3/ul Monocytes # 1.410^3/ul Eosinophils # 0.210^3/ul Basophils # 0.010^3/ul Nucleated Red Blood Cells # 0.010^3/ul Current Medications Medications (Trade) Dose Ordered Sig/Nahomi Route PRN Reason Start Time Stop Time Status Last Admin Dose Admin Lactated Ringer's 1,000 ml @ 125 mls/hr Q8H IV 07/23/16 18:30 Future Hold 07/31/16 11:08 Ampicillin 100 ml @ 100 mls/hr Q6 IV 07/23/16 22:30 07/31/16 10:54 DC 07/31/16 05:38 Erythromycin Lactobionate/ Sodium Chloride (Erythromycin Lactobionate/NS) 100 ml @ 100 mls/hr Q6 IVPB 07/24/16 00:00 07/26/16 14:31 DC 07/26/16 13:01 Docusate Sodium (Colace) 100 mg DAILY PO 07/24/16 09:00 08/07/16 08:53 Betamethasone Acet/Betameth SodPhos (Celestone Soluspan) 12 mg ONCE ONCE IM 07/24/16 11:30 07/24/16 11:30 DC Betamethasone Acet/Betameth SodPhos (Celestone Soluspan) 30 mg STK-MED ONCE .ROUTE 07/24/16 11:05 07/24/16 11:06 DC Betamethasone Acet/Betameth SodPhos (Celestone Soluspan) 12 mg ONCE IM 07/24/16 12:30 07/24/16 20:00 DC 07/24/16 12:04 Ondansetron HCl 4 mg 4 mg Q4H PRN IV NAUSEA AND/OR VOMITING 07/24/16 12:30 07/26/16 15:08 Magnesium Sulfate 4 gm/Sodium Chloride 108 ml @ 27 mls/hr ONCE ONCE IV 07/24/16 13:30 07/24/16 13:37 DC Magnesium Sulfate 500 ml @ 50 mls/hr Q10H IV 07/24/16 13:30 07/25/16 10:51 DC 07/24/16 23:24 Magnesium Sulfate 100 ml @ 200 mls/hr ONCE ONCE IVPB 07/24/16 14:00 07/24/16 14:29 DC 07/24/16 13:50 Cefazolin Sodium/ Dextrose 50 ml @ 100 mls/hr ONCE IV 07/25/16 08:00 07/25/16 08:58 DC Oxytocin/Lactated Ringer's 500 ml @ 0 mls/hr ONCE PRN IV For Hemorrhage Management 07/25/16 08:00 07/25/16 08:58 DC Methylergonovine Maleate (Methergine) 0.2 mg ONCE PRN IM VAGINAL BLEEDING 07/25/16 08:00 07/25/16 08:58 DC Carboprost Tromethamine (Hemabate) 250 mcg ONCE PRN IM VAGINAL BLEEDING 07/25/16 08:00 07/25/16 08:58 DC Misoprostol 1000 mcg 1,000 mcg ONCE PRN [place] VAGINAL BLEEDING 07/25/16 08:00 07/25/16 08:58 DC Cefazolin Sodium/ Dextrose (Ancef 2 Gm/50 ml (Pmx)) 50 ml @ ud STK-MED ONCE IVPB 07/25/16 08:03 07/25/16 08:04 DC Fentanyl (Sublimaze) 100 mcg STK-MED ONCE .ROUTE 07/25/16 08:13 07/25/16 08:14 DC Morphine Sulfate (Duramorph) 10 mg STK-MED ONCE .ROUTE 07/25/16 08:13 07/25/16 08:14 DC Butorphanol Tartrate (Stadol) 2 mg Q2H PRN IV PAIN 07/25/16 11:00 Betamethasone Acet/Betameth SodPhos 12 mg 12 mg ONCE ONCE IM 07/25/16 17:30 07/25/16 17:31 DC 07/25/16 17:19 Dextrose/Lactated Ringer's 1,000 ml @ 125 mls/hr Q8H IV 07/26/16 10:00 07/27/16 21:38 DC 07/26/16 10:05 Gentamicin Sulfate (Gentamicin) 50 ml @ 104 mls/hr Q8H IVPB 07/26/16 22:00 07/31/16 10:55 DC 07/31/16 05:38 Magnesium Hydroxide (Milk Of Mag) 30 ml BID PRN PO CONSTIPATION 07/27/16 21:30 07/28/16 08:56 Bisacodyl (Dulcolax Supp) 10 mg DAILY PRN [place] CONSTIPATION 07/27/16 21:30 Magnesium Citrate (Citroma) 300 ml NOW ONCE PO 07/28/16 14:00 07/28/16 14:01 DC 07/28/16 14:16 Miscellaneous Information (*Rx Drug Level Order Reminder*) GENTAMICIN TROUGH AT 2... ONCE XX 07/29/16 18:00 07/29/16 23:30 DC Prenat Multivit/ [place]/Iron/Folic Ac ( S) 1 tab DAILY PO 07/31/16 09:00 08/07/16 08:53 Ferrous Sulfate (Ferrous Sulfate (Ec)) 325 mg DAILY PO 07/31/16 09:00 08/07/16 08:53 Vitamin A/Vitamin D (Vitamin A & D Oint) 1 applic PRN PRN TOP dry lips 08/05/16 01:00 08/06/16 22:44 August 07, 2016 Hospital round his patient is a 20 years old primigravida 24 3/7 weeks .this patient was transferred from [facility] to [facility] due to early and severe oligohydramnios as well as premature rupture of membrane This patient was seen in [facility] perinatology and fairly extensive study revealed a severe oligohydramnios the patient was consult regarding the termination of the but she did not accept. Her antibiotics was DC'd few weeks ago. Currently she is taking her vitamins iron and Colace for her constipation. heart tones are normal and 130. On palpation the abdomen is not tender she does not have any contractions. Her WBC today is 14.8 thousand with a hemoglobin of 10.9 yesterday however her WBC was 12.2. She does not have any temperature chest is clear other mention abdomen is soft no tenderness Disposition: She is still staying in the hospital on would not go home and would not accept delivery by or otherwise She apparently was having an somewhat of abnormal behavior today mostly in the sleep. With his approval we will do a urine drug screen test on her today CYNDY MEJIA MD Aug 07, 2016 16:31
[2016-08-07 17:10] LABS: BARBITURATES NEGATIVE (NEGATIVE); BENZODIAZEPINES NEGATIVE (NEGATIVE); CANNABINOIDS NEGATIVE (NEGATIVE); COCAINE NEGATIVE (NEGATIVE); OPIATES NEGATIVE (NEGATIVE)
[2016-08-08] MEDS: DOCUSATE SODIUM 100 MG CAP PO SCH (09:51)
[2016-08-08] MEDS: FERROUS SULFATE (EC) 325 MG TAB PO SCH (09:51)
[2016-08-08] MEDS: MULTIVIT/MIN/FOLATE/IRON/PREN TAB PO SCH (09:51)
--- NOTE | 2016-08-08 13:28 | PN ---
Date/Time of Note Date/Time of Note DATE: 08/08/16 TIME: 13:23 OB Subjective Subjective Subjective Patient denies any vaginal bleeding, uterine contractions. She reports leaking fluid. She denies any abdominal pain, denies any fever or chills. She denies any foul-smelling vaginal discharge. OB Objective Objective Objective General appearance: Patient is alert and oriented 4 and is not appear to be in any acute distress. She is comfortably in bed. Playing with her iPhone. Mood congruent. Abdomen: Soft, gravid, nontender, fundal height at about 24 weeks. No fundal tenderness Extremities: No calf tenderness, no click no edema heart tone: 140's normal range Hematology - 72 Hrs Test 08/07/16 05:44 White Blood Count 14.810^3/ul (4.8-10.8) #H Red Blood Count 3.5710^6/ul (4.20-5.40) L Hemoglobin 10.9g/dl (12.0-16.0) L Hematocrit 32.7% (37.0-47.0) L Mean Corpuscular Volume 91.6fl (72.0-104.0) Mean Corpuscular Hemoglobin 30.5pg (29.0-33.0) Mean Corpuscular Hemoglobin Concent 33.3g/dl (32.0-37.0) Red Cell Distribution Width 14.0% (11.5-14.5) Platelet Count 36187^3/UL (140-415) Mean Platelet Volume 9.7fl (7.4-10.4) Neutrophils % 67.4% (30.0-74.0) Lymphocytes % 18.1% (18.0-55.0) Monocytes % 9.4% (0.0-13.0) Eosinophils % 1.3% (0.0-7.0) Basophils % 0.2% (0.0-2.0) Nucleated Red Blood Cells % 0.0/100WBC (0.0-0.0) Neutrophils # 10.010^3/ul (1.6-7.5) H Lymphocytes # 2.710^3/ul (0.8-2.9) Monocytes # 1.410^3/ul (0.3-0.9) H Eosinophils # 0.210^3/ul (0.0-0.5) Basophils # 0.010^3/ul (0.0-0.1) Nucleated Red Blood Cells # 0.010^3/ul (0.0-0.0) OB Assessment/Plan Other Assessment: IUP at 24+ weeks Severe oligohydramnios detected prior to viability. Patient had been counseled by [facility] perinatology on different occasions due to poor outcome and at that time she decided to proceed with and declined termination. Patient currently status post steroids. Now above 24 weeks and technically considered viable based on gestational age Possible oligohydramnios related to PPROM. Her test was positive for ROM. She reports now she is leaking fluid Increased risk of pulmonary hypoplasia at this gestational age due to PPROM discussed with the patient as well as poor intrauterine or outcome after delivery Patient declined having section for benefit. She is currently being monitored only with tone. She does not have currently any evidence of chorioamnionitis and she is clinically stable. This case has been discussed with Dr. Ronquillo. Consider delivery for maternal fever, abruption or evidence of chorioamnionitis, or intrauterine demise Patient declined section. With above finding considered delivery vaginally Patient understands and is aware of the poor outcome regardless. Increased risk of intrauterine demise related to cord compression due to severe oligohydramnios or abruption discussed with the patient. Patient currently does not have any of the above symptoms. We will continue monitor and expectant management. Patient verbalized understanding above plan MARCO JOHANSEN MD Aug 08, 2016 13:28
[2016-08-09] MEDS: MULTIVIT/MIN/FOLATE/IRON/PREN TAB PO SCH (08:57)
[2016-08-09] MEDS: DOCUSATE SODIUM 100 MG CAP PO SCH (08:57)
[2016-08-09] MEDS: FERROUS SULFATE (EC) 325 MG TAB PO SCH (08:57)
--- NOTE | 2016-08-09 11:18 | QN ---
Documentation Comment August 09, 2069 Hospital around This patient is a 20 years old 2 para today she is about 25 weeks premature rupture of membranes severe clinical specialized for over a week Today she is afebrile abdomen is soft with a heart tone around 100 1000 no contraction no CVA 10 No excessive vaginal bleeding, just a brown vaginal The plan is to watch her further and induce labor when no heart tone is present Current Medications Medications (Trade) Dose Ordered Sig/Nahomi Route PRN Reason Start Time Stop Time Status Last Admin Dose Admin Lactated Ringer's 1,000 ml @ 125 mls/hr Q8H IV 07/23/16 18:30 Future Hold 07/31/16 11:08 Ampicillin 100 ml @ 100 mls/hr Q6 IV 07/23/16 22:30 07/31/16 10:54 DC 07/31/16 05:38 Erythromycin Lactobionate/ Sodium Chloride (Erythromycin Lactobionate/NS) 100 ml @ 100 mls/hr Q6 IVPB 07/24/16 00:00 07/26/16 14:31 DC 07/26/16 13:01 Docusate Sodium (Colace) 100 mg DAILY PO 07/24/16 09:00 08/09/16 08:57 Betamethasone Acet/Betameth SodPhos (Celestone Soluspan) 12 mg ONCE ONCE IM 07/24/16 11:30 07/24/16 11:30 DC Betamethasone Acet/Betameth SodPhos (Celestone Soluspan) 30 mg STK-MED ONCE .ROUTE 07/24/16 11:05 07/24/16 11:06 DC Betamethasone Acet/Betameth SodPhos (Celestone Soluspan) 12 mg ONCE IM 07/24/16 12:30 07/24/16 20:00 DC 07/24/16 12:04 Ondansetron HCl 4 mg 4 mg Q4H PRN IV NAUSEA AND/OR VOMITING 07/24/16 12:30 07/26/16 15:08 Magnesium Sulfate 4 gm/Sodium Chloride 108 ml @ 27 mls/hr ONCE ONCE IV 07/24/16 13:30 07/24/16 13:37 DC Magnesium Sulfate 500 ml @ 50 mls/hr Q10H IV 07/24/16 13:30 07/25/16 10:51 DC 07/24/16 23:24 Magnesium Sulfate 100 ml @ 200 mls/hr ONCE ONCE IVPB 07/24/16 14:00 07/24/16 14:29 DC 07/24/16 13:50 Cefazolin Sodium/ Dextrose 50 ml @ 100 mls/hr ONCE IV 07/25/16 08:00 07/25/16 08:58 DC Oxytocin/Lactated Ringer's 500 ml @ 0 mls/hr ONCE PRN IV For Hemorrhage Management 07/25/16 08:00 07/25/16 08:58 DC Methylergonovine Maleate (Methergine) 0.2 mg ONCE PRN IM VAGINAL BLEEDING 07/25/16 08:00 07/25/16 08:58 DC Carboprost Tromethamine (Hemabate) 250 mcg ONCE PRN IM VAGINAL BLEEDING 07/25/16 08:00 07/25/16 08:58 DC Misoprostol 1000 mcg 1,000 mcg ONCE PRN [place] VAGINAL BLEEDING 07/25/16 08:00 07/25/16 08:58 DC Cefazolin Sodium/ Dextrose (Ancef 2 Gm/50 ml (Pmx)) 50 ml @ ud STK-MED ONCE IVPB 07/25/16 08:03 07/25/16 08:04 DC Fentanyl (Sublimaze) 100 mcg STK-MED ONCE .ROUTE 07/25/16 08:13 07/25/16 08:14 DC Morphine Sulfate (Duramorph) 10 mg STK-MED ONCE .ROUTE 07/25/16 08:13 07/25/16 08:14 DC Butorphanol Tartrate (Stadol) 2 mg Q2H PRN IV PAIN 07/25/16 11:00 Betamethasone Acet/Betameth SodPhos 12 mg 12 mg ONCE ONCE IM 07/25/16 17:30 07/25/16 17:31 DC 07/25/16 17:19 Dextrose/Lactated Ringer's 1,000 ml @ 125 mls/hr Q8H IV 07/26/16 10:00 07/27/16 21:38 DC 07/26/16 10:05 Gentamicin Sulfate (Gentamicin) 50 ml @ 104 mls/hr Q8H IVPB 07/26/16 22:00 07/31/16 10:55 DC 07/31/16 05:38 Magnesium Hydroxide (Milk Of Mag) 30 ml BID PRN PO CONSTIPATION 07/27/16 21:30 07/28/16 08:56 Bisacodyl (Dulcolax Supp) 10 mg DAILY PRN [place] CONSTIPATION 07/27/16 21:30 Magnesium Citrate (Citroma) 300 ml NOW ONCE PO 07/28/16 14:00 07/28/16 14:01 DC 07/28/16 14:16 Miscellaneous Information (*Rx Drug Level Order Reminder*) GENTAMICIN TROUGH AT 2... ONCE XX 07/29/16 18:00 07/29/16 23:30 DC Prenat Multivit/ [place]/Iron/Folic Ac ( S) 1 tab DAILY PO 07/31/16 09:00 08/09/16 08:57 Ferrous Sulfate (Ferrous Sulfate (Ec)) 325 mg DAILY PO 07/31/16 09:00 08/09/16 08:57 Vitamin A/Vitamin D (Vitamin A & D Oint) 1 applic PRN PRN TOP dry lips 08/05/16 01:00 08/06/16 22:44 CYNDY MEJIA MD Aug 09, 2016 11:18
[2016-08-10] MEDS: FERROUS SULFATE (EC) 325 MG TAB PO SCH (08:39)
[2016-08-10] MEDS: MULTIVIT/MIN/FOLATE/IRON/PREN TAB PO SCH (08:39)
[2016-08-10] MEDS: DOCUSATE SODIUM 100 MG CAP PO SCH ×2 (08:39→22:20)
--- NOTE | 2016-08-10 11:39 | QN ---
Documentation Comment 24+wks GA with Severe oligohydramnios,No CTX +FM No VB No CTXs +FHR by Doppler Bryant No CTXs ---->mamagment as per perinatalogist (&) ----->patient's questions answered BRYAN BUTTS M.D. Aug 10, 2016 11:39
[2016-08-10] MEDS ORDERED: DOCUSATE SODIUM 100 MG CAP PO SCH (12:00)
[2016-08-10] MEDS ORDERED: DIPHENHYDRAMINE 2%/ZINC 28.4 GM CR TOP PRN (19:00)
[2016-08-10] MEDS ORDERED: DIPHENHYDRAMINE 2%/ZINC 28.4 GM CR TOP ONE (19:00)
[2016-08-11] MEDS ORDERED: DIPHENHYDRAMINE 50 MG CAP PO PRN (08:30)
[2016-08-11] MEDS ORDERED: DIPHENHYDRAMINE 25 MG CAP PO PRN (08:30)
[2016-08-11 09:14] LABS: ADD SCAN DIFF NO
[2016-08-11 09:15] LABS: BASOPHILS % 0.3 % (0.0-2.0); EOSINOPHILS # 0.3 10^3/ul (0.0-0.5); EOSINOPHILS % 2.2 % (0.0-7.0); HEMATOCRIT 31.9 % (37.0-47.0); LYMPHOCYTES # 2.2 10^3/ul (0.8-2.9); MEAN CORPUSCULAR HEMOGLOBIN 31.3 pg (29.0-33.0); MEAN CORPUSCULAR HGB CONC 34.5 g/dl (32.0-37.0); MEAN CORPUSCULAR VOLUME 90.9 fl (72.0-104.0); MEAN PLATELET VOLUME 9.3 fl (7.4-10.4); MONOCYTES % 8.2 % (0.0-13.0); NEUTROPHIL # 7.8 10^3/ul (1.6-7.5); NEUTROPHILS % 67.4 % (30.0-74.0); PLATELET COUNT 189 10^3/UL (140-415); RED BLOOD COUNT 3.51 10^6/ul (4.20-5.40); RED CELL DISTRIBUTION WIDTH 13.8 % (11.5-14.5); WHITE BLOOD COUNT 11.5 10^3/ul (4.8-10.8)
[2016-08-11 09:26] LABS: ALBUMIN 3.5 g/dl (3.3-4.9)
[2016-08-11 09:27] LABS: POTASSIUM 4.1 mmol/L (3.5-5.1)
[2016-08-11 09:29] LABS: BILIRUBIN,INDIRECT 0.1 mg/dl (0-1.1); BILIRUBIN,TOTAL 0.1 mg/dl (0.2-1.3); CREATININE 0.53 mg/dl (0.44-1.00)
[2016-08-11 09:30] LABS: CALCIUM 9.2 mg/dl (8.4-10.2); TOTAL PROTEIN 6.9 g/dl (6.1-8.1)
[2016-08-11 09:45] LABS: ALBUMIN/GLOBULIN RATIO 1.02
--- NOTE | 2016-08-11 10:38 | PN ---
Date/Time of Note Date/Time of Note DATE: 08/11/16 TIME: 09:46 OB Subjective Subjective Subjective IUP at 24+ weeks Severe oligohydramnios OB Objective Abdomen: WNL Extremities: Normal Membranes: Ruptured Amniotic Fluid: Other (none) OB Assessment/Plan Other plan: IUP at 24+ weeks Severe oligohydramnios detected prior to viability. Patient had been counseled by [facility] perinatology on different occasions due to poor outcome and at that time she decided to proceed with and declined termination. Patient currently status post steroids. Now above 24 weeks and technically considered viable based on gestational age Possible oligohydramnios related to PPROM. Her test was positive for ROM. She reports she is leaking fluid Increased risk of pulmonary hypoplasia at this gestational age due to PPROM discussed with the patient as well as poor intrauterine or outcome after delivery Patient declined having section for benefit. She is currently being monitored only with tone. She does not have currently any evidence of chorioamnionitis and she is clinically stable. This case has been discussed with Dr. Ronquillo. Consider delivery for maternal fever, abruption or evidence of chorioamnionitis, or intrauterine demise Patient declined section. With above finding considered delivery vaginally Patient understands and is aware of the poor outcome regardless. Increased risk of intrauterine demise related to cord compression due to severe oligohydramnios or abruption discussed with the patient. Patient currently does not have any of the above symptoms. We will continue monitor and expectant management. Patient verbalized understanding above plan labs today ERICKA MONTANA Aug 11, 2016 09:56
[2016-08-11] MEDS: DOCUSATE SODIUM 100 MG CAP PO SCH ×4 (15:30→21:06)
[2016-08-11] MEDS ORDERED: LACTATED RINGER'S 1,000 ML IV SCH (15:30)
[2016-08-11] MEDS: FERROUS SULFATE (EC) 325 MG TAB PO SCH ×3 (15:30→15:33)
[2016-08-11] MEDS: MULTIVIT/MIN/FOLATE/IRON/PREN TAB PO SCH (15:33)
--- NOTE | 2016-08-11 17:35 | PN ---
Date/Time of Note Date/Time of Note DATE: 08/11/16 TIME: 17:32 OB Subjective Subjective Subjective Patient at 24+ weeks of gestation with severe oligohydramnios Status post magnesium sulfate and 2 doses of betamethasone She has no complaints today OB Objective Objective Objective Vital signs stable and afebrile Cervix 1 cm Repeat labs today indicating WBC within normal limits OB Assessment/Plan Other Assessment: 24+ weeks of gestation with severe oligohydramnios Other plan: Continue with present management ERICKA MONTANA Aug 11, 2016 17:35
--- NOTE | 2016-08-12 13:02 | QN ---
Documentation Comment Laborist- Antepartum Rounding S: Pt doing well. Reports vaginal bleeding yesterday and LOF this morning. Reports good FM. Denies UCs. O: afebrile 102/55 73 Pos FHT per RN with hiccups SVE yesterday FT/long/high Gen: pleasant, NAD CV: RRR, nl s1s2 Resp: CTAB Abd: soft, NT, NABS Ext: BLE symmetric, nontender, no edema CBC (08/11) 11.5>11.0/31.9<189 HD#21 for 20yo at 25+1 with anxiety admitted with vaginal bleeding and presumed PPROM in the setting of known severe oligohydramnios. No e/o PTL, abruption or chorioamnionitis. Pt s/p Magnesium Sulfate, latency Abx and BMZ course. ->Continue expectant management ->Doptones daily with plan for IOL in the setting of IUFD ->Pt s/p MFM consult x2 while in-house and extensive counseling regarding poor prognosis of fetus. Pt aware fetus is likely non-viable and would like to continue ->Per MFM note no C/S for indications ->SCDs while in bed Plan d/w pt. Questions answered to her satisfaction. JOSE KUMAR MD Aug 12, 2016 13:02
[2016-08-12] MEDS: MULTIVIT/MIN/FOLATE/IRON/PREN TAB PO SCH (17:27)
[2016-08-12] MEDS: DOCUSATE SODIUM 100 MG CAP PO SCH ×2 (17:27→20:56)
[2016-08-12] MEDS: FERROUS SULFATE (EC) 325 MG TAB PO SCH (17:27)
[2016-08-13] MEDS ORDERED: SALINE 0.65% 45 ML NAS SPRAY NASAL ONE (01:00)
[2016-08-13] MEDS: MULTIVIT/MIN/FOLATE/IRON/PREN TAB PO SCH (08:50)
[2016-08-13] MEDS: FERROUS SULFATE (EC) 325 MG TAB PO SCH (08:51)
[2016-08-13] MEDS: DOCUSATE SODIUM 100 MG CAP PO SCH (08:51)
[2016-08-13] MEDS: LACTATED RINGER'S 1,000 ML IV SCH ×2 (15:20→23:47)
--- NOTE | 2016-08-13 16:19 | QN ---
Documentation Comment pt doing well. with one episode of bleedding today. no ucx no fevers good movement VSS exam wnl no fundal tendreness pos FHT a/p iup 25 weeks- considered previable due to weight and poor care continue care ISHAAN PURDY MD Aug 13, 2016 16:19
[2016-08-13 16:29] LABS: ADD SCAN DIFF NO
[2016-08-13 16:31] LABS: BASOPHILS % 0.2 % (0.0-2.0); EOSINOPHILS # 0.2 10^3/ul (0.0-0.5); EOSINOPHILS % 2.3 % (0.0-7.0); HEMATOCRIT 29.7 % (37.0-47.0); HEMOGLOBIN 10.6 g/dl (12.0-16.0); LYMPHOCYTES # 1.8 10^3/ul (0.8-2.9); LYMPHOCYTES % 17.2 % (18.0-55.0); MEAN CORPUSCULAR HGB CONC 35.7 g/dl (32.0-37.0); MEAN CORPUSCULAR VOLUME 89.7 fl (72.0-104.0); MEAN PLATELET VOLUME 9.6 fl (7.4-10.4); MONOCYTE # 0.6 10^3/ul (0.3-0.9); MONOCYTES % 5.8 % (0.0-13.0); NEUTROPHIL # 7.5 10^3/ul (1.6-7.5); NEUTROPHILS % 72.9 % (30.0-74.0); PLATELET COUNT 188 10^3/UL (140-415); RED BLOOD COUNT 3.31 10^6/ul (4.20-5.40); RED CELL DISTRIBUTION WIDTH 13.2 % (11.5-14.5); WHITE BLOOD COUNT 10.3 10^3/ul (4.8-10.8)
--- NOTE | 2016-08-13 18:27 | RADRPT ---
PROCEDURE: Limited OB ultrasound CLINICAL INDICATION: Vaginal bleeding TECHNIQUE: Sonographic evaluation to assess the placenta was performed. Transabdominal imaging of the gravid uterus was performed. COMPARISON: No prior exam is available for comparison. FINDINGS: There is a single live intrauterine with cardiac activity, with a heart rate o f 120 bpm. position is cephalic. The placenta is left lateral. There is no evidence of plac ental abruption or previa. The maximum vertical pocket measures 1.7 cm. IMPRESSION: 1. Left lateral placenta without evidence of placental abruption or previa. 2. The maximum vertical pocket measures 1.7 cm. RPTAT: HH .Comfort Rodriguez MD, Date Time Electronically viewed and signed by .Comfort Rodriguez MD, on 08/13/2016 18:26 .G/
[2016-08-13 18:56] LABS: ALBUMIN 3.4 g/dl (3.3-4.9)
[2016-08-13 18:57] LABS: POTASSIUM 3.3 mmol/L (3.5-5.1)
[2016-08-13 18:59] LABS: ALBUMIN/GLOBULIN RATIO 1.03; BILIRUBIN,INDIRECT 0.2 mg/dl (0-1.1); BILIRUBIN,TOTAL 0.2 mg/dl (0.2-1.3); CREATININE 0.44 mg/dl (0.44-1.00); TOTAL PROTEIN 6.7 g/dl (6.1-8.1)
[2016-08-13 19:00] LABS: CALCIUM 8.7 mg/dl (8.4-10.2)
[2016-08-13 19:23] LABS: ADD SCAN DIFF NO
[2016-08-13 19:30] LABS: BASOPHILS % 0.3 % (0.0-2.0); EOSINOPHILS # 0.3 10^3/ul (0.0-0.5); EOSINOPHILS % 2.3 % (0.0-7.0); HEMOGLOBIN 10.9 g/dl (12.0-16.0); LYMPHOCYTES # 1.8 10^3/ul (0.8-2.9); LYMPHOCYTES % 15.9 % (18.0-55.0); MEAN CORPUSCULAR HEMOGLOBIN 31.7 pg (29.0-33.0); MEAN CORPUSCULAR HGB CONC 35.2 g/dl (32.0-37.0); MEAN CORPUSCULAR VOLUME 90.1 fl (72.0-104.0); MEAN PLATELET VOLUME 9.7 fl (7.4-10.4); MONOCYTE # 0.8 10^3/ul (0.3-0.9); MONOCYTES % 6.8 % (0.0-13.0); NEUTROPHIL # 8.4 10^3/ul (1.6-7.5); NEUTROPHILS % 73.1 % (30.0-74.0); PLATELET COUNT 197 10^3/UL (140-415); RED BLOOD COUNT 3.44 10^6/ul (4.20-5.40); RED CELL DISTRIBUTION WIDTH 13.2 % (11.5-14.5); WHITE BLOOD COUNT 11.5 10^3/ul (4.8-10.8)
--- NOTE | 2016-08-13 22:44 | PN ---
DATE: The patient is a 20-year-old G1, P0 who had presented at approximately 22 weeks with a longstanding history of oligohydramnios, possible pre-PROM. The patient was admitted on observation, started on magnesium and ____ betamethasone. On the day, 08/13/2016, the patient had several episodes of bleed ing and some cramping. Possibility the patient is in labor. The patient is very . Had long history of oligohydramnios. Discussion was had with the patient regarding route of delivery if the patient does go into labor. Last ultrasound done on 08/04/2016 showed the weight was 371 g. Again, it was discussed with the patient regarding the fact that options would be a C section or al lowing the baby to deliver vaginally and assessing the baby post delivery vaginally. Risks and bene fits of both discussed and discussed the fact that the patient had longstanding oligo and at only 37 1 g that the best option would be ____ discussing the case with M that since the infant is probabl y previable to monitor, not to do a C section, but let the baby deliver vaginally and let the NICU t eam evaluate the patient. All questions were answered and the patient understood the risks. I disc ussed with the nurse in the room and 2 family members in the room. The patient understood that opti ons were given to her and decided that C section would not be done, monitoring would not be done, bu t when the baby does deliver vaginally, at this point, if the baby delivers today, to not monitor du ring labor, not do a C section, but once the baby is born to have NICU team there to evaluate if the baby is able to be resuscitated. All questions were answered and patient will be transferred to [facility] and delivery for further observation and further laboratory work. Dictated By: ISHAAN PURDY MD /NTS Conf#: [id number] DID#: [id number] CC: BRYAN BUTTS MD;*EndCC*
[2016-08-14] MEDS: LACTATED RINGER'S 1,000 ML IV SCH (07:19)
[2016-08-14] MEDS: DOCUSATE SODIUM 100 MG CAP PO SCH ×3 (09:00→21:09)
[2016-08-14] MEDS: MULTIVIT/MIN/FOLATE/IRON/PREN TAB PO SCH (09:12)
[2016-08-14] MEDS: FERROUS SULFATE (EC) 325 MG TAB PO SCH (09:12)
--- NOTE | 2016-08-14 09:22 | RADRPT ---
PROCEDURE: US OB. CLINICAL INDICATION: Size and dates , labor TECHNIQUE: Multiple sonographic images of the pelvis and gravid uterus were obtained. The images were reviewed on a PACS workstation. COMPARISON: 08/13/2016 FINDINGS: There is a single viable intrauterine gestation. Cardiac activity is present with 129 beats per min anand. There is a vertex presentation. Measurements were made in order to determine age. The results are as follows: BPD =5.9 cm HC =22 cm AC =17.8 cm FL =3.5 cm Estimated gestational age of approximately 23 weeks and 0 days based on ultrasound measurements. Clinical age: 25 weeks and 3 days. The estimated date of delivery is 12/11/16, based on ultrasound measurements. The EFW = 485 g, <3%, based on LMP age. RPTAT: AA IMPRESSION: Single viable intrauterine gestation of approximately 23 weeks and 0 days based on ultrasound measu rements. Smaller than clinical age by approximately 2 weeks. .Farhan Cruz MD, MD Date Time Electronically viewed and signed by .Farhan Cruz MD, on 08/14/2016 09:22 .S/
[2016-08-14] MEDS ORDERED: LACTATED RINGER'S 1,000 ML IV PRN (17:08)
[2016-08-15] MEDS: DOCUSATE SODIUM 100 MG CAP PO SCH ×2 (08:56→21:00)
[2016-08-15] MEDS: FERROUS SULFATE (EC) 325 MG TAB PO SCH (08:56)
[2016-08-15] MEDS: MULTIVIT/MIN/FOLATE/IRON/PREN TAB PO SCH (08:56)
--- NOTE | 2016-08-15 12:42 | PN ---
Date/Time of Note Date/Time of Note DATE: 08/15/16 TIME: 12:30 OB Subjective Subjective Subjective Patient comfortable in bed. Denies any complaint. Denies any fever, chills, vaginal discharge, foul odor, abdominal pain, vaginal bleeding. OB Objective Objective Objective General appearance: Alert and oriented 4 does not appear to be in any acute distress Abdomen: Gravid, fundal height consistent with gestational age at around 24 weeks, no fundal tenderness, no abdominal tenderness, Abdomen is soft and gravid Extremities: No calf tenderness, no click, no edema NST: Category 1, appropriate for gestational age No contraction the monitor seen Hematology - 72 Hrs Test 08/13/16 15:48 08/13/16 19:16 White Blood Count 10.310^3/ul (4.8-10.8) 11.510^3/ul (4.8-10.8) H Red Blood Count 3.3110^6/ul (4.20-5.40) L 3.4410^6/ul (4.20-5.40) L Hemoglobin 10.6g/dl (12.0-16.0) L 10.9g/dl (12.0-16.0) L Hematocrit 29.7% (37.0-47.0) L 31.0% (37.0-47.0) L Mean Corpuscular Volume 89.7fl (72.0-104.0) 90.1fl (72.0-104.0) Mean Corpuscular Hemoglobin 32.0pg (29.0-33.0) 31.7pg (29.0-33.0) Mean Corpuscular Hemoglobin Concent 35.7g/dl (32.0-37.0) 35.2g/dl (32.0-37.0) Red Cell Distribution Width 13.2% (11.5-14.5) 13.2% (11.5-14.5) Platelet Count 28945^3/UL (140-415) 81424^3/UL (140-415) Mean Platelet Volume 9.6fl (7.4-10.4) 9.7fl (7.4-10.4) Neutrophils % 72.9% (30.0-74.0) 73.1% (30.0-74.0) Lymphocytes % 17.2% (18.0-55.0) L 15.9% (18.0-55.0) L Monocytes % 5.8% (0.0-13.0) 6.8% (0.0-13.0) Eosinophils % 2.3% (0.0-7.0) 2.3% (0.0-7.0) Basophils % 0.2% (0.0-2.0) 0.3% (0.0-2.0) Nucleated Red Blood Cells % 0.0/100WBC (0.0-0.0) 0.0/100WBC (0.0-0.0) Neutrophils # 7.510^3/ul (1.6-7.5) 8.410^3/ul (1.6-7.5) H Lymphocytes # 1.810^3/ul (0.8-2.9) 1.810^3/ul (0.8-2.9) Monocytes # 0.610^3/ul (0.3-0.9) 0.810^3/ul (0.3-0.9) Eosinophils # 0.210^3/ul (0.0-0.5) 0.310^3/ul (0.0-0.5) Basophils # 0.010^3/ul (0.0-0.1) 0.010^3/ul (0.0-0.1) Nucleated Red Blood Cells # 0.010^3/ul (0.0-0.0) 0.010^3/ul (0.0-0.0) Chemistry Test 08/13/16 18:10 Sodium Level 133mmol/L (135-144) L Potassium Level 3.3mmol/L (3.5-5.1) L Chloride Level 104mmol/L (97-110) Carbon Dioxide Level 20mmol/L (21-31) L Anion Gap 12 (8-16) Blood Urea Nitrogen 6mg/dl (7-20) L Creatinine 0.44mg/dl (0.44-1.00) Glucose Level 87mg/dl (70-220) Calcium Level 8.7mg/dl (8.4-10.2) Total Bilirubin 0.2mg/dl (0.2-1.3) Direct Bilirubin 0.00mg/dl (0.00-0.20) Indirect Bilirubin 0.2mg/dl (0-1.1) Aspartate Amino Transf (AST/SGOT) 21IU/L (15-46) Alanine Aminotransferase (ALT/SGPT) 26IU/L (13-69) Alkaline Phosphatase 105IU/L (42-121) Total Protein 6.7g/dl (6.1-8.1) Albumin 3.4g/dl (3.3-4.9) Globulin 3.30g/dl (1.3-3.2) H Albumin/Globulin Ratio 1.03 OB Assessment/Plan Other Assessment: IUP at 25 weeks and 4 days Admitted for severe oligohydramnios, concern for PPROM prior to viability Patient had been hospitalized for expectant management She was a started on steroid and magnesium. Completed a course of steroids currently more than 24 hours after last dose of steroid she also received magnesium for neuro prophylaxis Currently off of mag, no evidence of chorioamnionitis, abruption or labor She was seen by perinatologist and brick grader Recommendation at this time is to proceed with expectant management and not proceeding for section for benefit until 26 weeks per my conversation with Dr. Ronquillo as well as Dr. Susan shearer . Recommended to proceed only section.for maternal benefit Vaginal delivery in case of labor prior to [address] Ronquillo, consider section after 26 weeks if the patient still for benefit Patient is aware of the poor out come of due to long standing PPROM and severe oligohydramnios prior to viability MARCO JOHANSEN MD Aug 15, 2016 12:42
--- NOTE | 2016-08-15 23:48 | QN ---
Documentation Comment I was called by RN that the patient feels cramps and scant vaginal bleeding. attended to the bed side. Patient noted comfortable in bed, Complains of mild cramps and light vaginal bleeding. Denies any fever, chills, or any other symptoms PE: GA , A&O, NAD abdomen: Soft, non tender, Gravid, Fundal height consistent with GA NST. Appropriate for GA reviewed SSE: Vaginal pool and drak red blood filled the speculum no blood clot. There was a total of about 50 cc dark bloody fluid SVE: 1 FT/ Long and high Assessment: IUP at 25 weeks and 4 days Admitted for PRPOM prior to vitablity History of severe oligohydramnios, Poor out come. She was counseled repeatedly for poor outcome due to detention and early severe oligohydramnios S/p Magnesium and Steriod for lung maturity S/p ricardo and perinatology consultation She was counseled and seen by DR. Davis, perimatology that the baby would not benefit from C/S. she elected not to proceed with C/S at this time due to benefit I have also discussed and confirmed this plan of care today with Dr. Ronquillo, who agreed with the plan of expectant management at this time until 26 weeks and considerling vaginal delviery in case of PTL. Per Dr. Ronquillo C/s only for maternal benefit including significant vaginal bleeding recommended. Patient now started vaginal bleeding, which is currently mild. It appears to be related to current episode of placental abruption. I discussed again with Rachel about above plan.she does not want section for distress, how ever she understands that in case of significant abruotion of hemorrhaga and threatening of maternal life, this would be considered. she understands at this time, will consider expectant management and close monitoring of her vaginal bleeding. She understands that this may end to IUIFD if there is continued vaginal bleeding. She also understands in case of vaginal delivery, the baby also will be evaluated by NICU team as well as far as resuscition Per Dr. Ronquillo, consider CD after 26 weeks for benefit. Patient verbalized quite understanding all above discussion and had no questions Will transfer the patient to L&D. continue to watch closely for Vaginal bleeding Keep NPO MARCO JOHANSEN MD Aug 15, 2016 23:13
[2016-08-16] MEDS: LACTATED RINGER'S 1,000 ML IV SCH ×4 (00:03→22:40)
[2016-08-16] MEDS: MULTIVIT/MIN/FOLATE/IRON/PREN TAB PO SCH (09:00)
[2016-08-16] MEDS: DOCUSATE SODIUM 100 MG CAP PO SCH ×2 (09:00→21:00)
[2016-08-16] MEDS: FERROUS SULFATE (EC) 325 MG TAB PO SCH (09:00)
[2016-08-16 12:34] LABS: ADD SCAN DIFF NO
[2016-08-16 12:35] LABS: BASOPHILS % 0.3 % (0.0-2.0); EOSINOPHILS # 0.4 10^3/ul (0.0-0.5); EOSINOPHILS % 3.3 % (0.0-7.0); HEMOGLOBIN 10.8 g/dl (12.0-16.0); LYMPHOCYTES # 2.3 10^3/ul (0.8-2.9); LYMPHOCYTES % 19.3 % (18.0-55.0); MEAN CORPUSCULAR HEMOGLOBIN 31.4 pg (29.0-33.0); MEAN CORPUSCULAR HGB CONC 34.8 g/dl (32.0-37.0); MEAN CORPUSCULAR VOLUME 90.1 fl (72.0-104.0); MEAN PLATELET VOLUME 9.5 fl (7.4-10.4); MONOCYTE # 0.8 10^3/ul (0.3-0.9); MONOCYTES % 6.7 % (0.0-13.0); NEUTROPHIL # 8.1 10^3/ul (1.6-7.5); NEUTROPHILS % 68.9 % (30.0-74.0); PLATELET COUNT 187 10^3/UL (140-415); RED BLOOD COUNT 3.44 10^6/ul (4.20-5.40); RED CELL DISTRIBUTION WIDTH 13.2 % (11.5-14.5); WHITE BLOOD COUNT 11.7 10^3/ul (4.8-10.8)
[2016-08-17] MEDS: LACTATED RINGER'S 1,000 ML IV SCH (07:07)
[2016-08-17] MEDS: DOCUSATE SODIUM 100 MG CAP PO SCH ×2 (09:00→21:00)
[2016-08-17] MEDS: MULTIVIT/MIN/FOLATE/IRON/PREN TAB PO SCH (10:53)
[2016-08-17] MEDS: FERROUS SULFATE (EC) 325 MG TAB PO SCH (10:53)
[2016-08-17 13:10] LABS: ADD SCAN DIFF NO
[2016-08-17 13:19] LABS: BASOPHILS % 0.2 % (0.0-2.0); EOSINOPHILS # 0.4 10^3/ul (0.0-0.5); EOSINOPHILS % 4.2 % (0.0-7.0); HEMATOCRIT 29.2 % (37.0-47.0); HEMOGLOBIN 10.1 g/dl (12.0-16.0); LYMPHOCYTES # 1.5 10^3/ul (0.8-2.9); LYMPHOCYTES % 17.8 % (18.0-55.0); MEAN CORPUSCULAR HEMOGLOBIN 31.6 pg (29.0-33.0); MEAN CORPUSCULAR HGB CONC 34.6 g/dl (32.0-37.0); MEAN CORPUSCULAR VOLUME 91.3 fl (72.0-104.0); MEAN PLATELET VOLUME 10.1 fl (7.4-10.4); MONOCYTE # 0.6 10^3/ul (0.3-0.9); MONOCYTES % 6.7 % (0.0-13.0); NEUTROPHIL # 5.8 10^3/ul (1.6-7.5); NEUTROPHILS % 69.3 % (30.0-74.0); PLATELET COUNT 216 10^3/UL (140-415); RED CELL DISTRIBUTION WIDTH 13.1 % (11.5-14.5); WHITE BLOOD COUNT 8.4 10^3/ul (4.8-10.8)
--- NOTE | 2016-08-17 18:31 | QN ---
Documentation Comment pt doing well vss exam wnl a/p iup 25.6 pprom stable minimal spotting continue care ISHAAN PURDY MD Aug 17, 2016 18:31
[2016-08-18] MEDS: MULTIVIT/MIN/FOLATE/IRON/PREN TAB PO SCH (11:42)
[2016-08-18] MEDS: FERROUS SULFATE (EC) 325 MG TAB PO SCH (11:42)
[2016-08-18] MEDS: DOCUSATE SODIUM 100 MG CAP PO SCH ×3 (11:42→21:00)
--- NOTE | 2016-08-18 12:01 | QN ---
Documentation Comment 20 y.o. A1 with an IUP at 26 weeks with severe, [facility] oligohydramnios noted since at least early May. Pt in house since 07/23 for intermittent bleeding. Last US showed an EFW of 485 grams on 08/14. Cx was 3.4 cm. 08/11 VE was fingertip/thick/ and high. Pt was given betamethasone 07/24 and 07/25. She also received magnesium sulfate. 08/17 WBC was 8.4 and the Hgb was 10.1. Platelets were 216K. Pt has been well counseled by perinatology and neonatology about the dire outlook for this . Initially the plan was to proceed to C/S as needed only for maternal benefit e.g heavy bleeding. Now that has been changed as she is now 26 weeks, that may proceed to C/S for benefit as well, per perinatology, despite the dire outlook for the fetus. Pt was transported to and D 2 days ago for vaginal bleeding but has only a small amount of dark brown blood now. heart tracing with a baseline of 145bpm with accels to 160 bpm. No decels. No UC's. A: IUP at 26 weeks. Severe oligohydramnios. Bleeding, resolved. P: Transfer back to [facility]. JESSIE MONTELONGO MD Aug 18, 2016 12:01
--- NOTE | 2016-08-18 15:19 | PERINOTE ---
Date/Time of Note Date/Time of Note DATE: 08/18/16 TIME: 15:08 Assessment/Recommendations Other Assessments Oligohydramnios of uncertain etiology. US from [facility] documents presence of bladder and renal pelves, suggesting that renal agenesis is not the issue. Long-term oligohydramnios would be expected to cause pulmonary hypoplasia and orthopedic issues (club foot, ankylosis). Further evaluation of the body has been compromised by the lack of fluid. At the time of original diagnosis the patient was offered termination but declined. Recent US revealed growth restriction (<3%ile for GA). This could indicate a syndrome. She has stated during this admission that she would prefer to reserve delivery for maternal issues only. Recommendations: Would reserve delivery for maternal issues only. Would repeat the US every 3 weeks for growth. If the patient is stable and without active bleeding, could consider discharge home with outpatient follow up OB Subjective Free Text/Dictaton Patient with known severe oligohydramnios since the first trimester. Has had intermittent vaginal bleeding, most recently on 08/15/16, now resolved. Patient also with significant social issues. HD# 27 IUP @ 26W6D Complaints/Overnight events None Current Medications Current Medications Ondansetron HCl (Zofran Inj) 4 mg Q4H PRN IV NAUSEA AND/OR VOMITING Last administered on 07/26/16 15:08; Admin Dose 4 MG; Start 07/24/16 at 12:30 Butorphanol Tartrate (Stadol) 2 mg Q2H PRN IV PAIN; Start 07/25/16 at 11:00 Magnesium Hydroxide (Milk Of Mag) 30 ml BID PRN PO CONSTIPATION Last administered on 07/28/16 08:56; Admin Dose 30 ML; Start 07/27/16 at 21:30 Bisacodyl (Dulcolax Supp) 10 mg DAILY PRN AR CONSTIPATION; Start 07/27/16 at 21 :30 Prenat Multivit/ Interventional Physician/Iron/Folic Ac ( S) 1 tab DAILY PO Last administered on 08/18/16 11:42; Admin Dose 1 TAB; Start 07/31/16 at 09:00 Ferrous Sulfate (Ferrous Sulfate (Ec)) 325 mg DAILY PO Last administered on 08/18 11:42; Admin Dose 325 MG; Start 07/31/16 at 09:00 Vitamin A/Vitamin D (Vitamin A & D Oint) 1 applic PRN PRN TOP dry lips Last administered on 08/06/16 22:44; Admin Dose 1 APPLIC; Start 08/05/16 at 01:00 Docusate Sodium (Colace) 100 mg BID PO Last administered on 08/18/16 11:42; Admin Dose 100 MG; Start 08/10/16 at 21:00 Zinc Acetate/ Diphenhydramine (Benadryl 2% Cr) 1 applic Q6H PRN TOP ITCHING Last administered on 08/14/16 11:44; Admin Dose 1 APPLIC; Start 08/10/16 at 19: 00 Diphenhydramine HCl (Benadryl) 25 mg Q6H PRN PO ITCHING; Start 08/11/16 at 08:30 Diphenhydramine HCl 50 mg 50 mg Q6H PRN PO ITCHING; Start 08/11/16 at 08:30 Lactated Ringer's (Lr) 1,000 ml @ 125 mls/hr Q8H PRN IV IV PROTOCOL; Start 08/14 at 17:08 OB Admission Exam Physical Exam Vitals: Stable Abdomen: WNL Heart Rate: 140's Accelerations: No Accelerations (AGA) Varibility: Moderate Last 72 hours Lab Results CBC & BMP 08/16/16 12:30 08/17/16 13:00 YOLANDE APARICIO MD Aug 18, 2016 15:18
[2016-08-18] MEDS: MAGNESIUM HYDROXIDE 30ML CUP PO PRN ×2 (17:49→21:17)
[2016-08-18] MEDS ORDERED: MAGNESIUM CITRATE 300 ML BTL PO ONE (21:30)
--- NOTE | 2016-08-18 22:36 | RADRPT ---
PROCEDURE: US evaluation of amniotic fluid volume. CLINICAL INDICATION: Abnormal vaginal bleeding. Ruptured membranes. TECHNIQUE: Multiple sonographic images of the gravid uterus were obtained utilizing sosa-scale barbra ging. Sagittal and transverse images were obtained. The images were reviewed on a PACS workstation . EDUARD was measured. COMPARISON: No prior studies are available for comparison. FINDINGS: There is a single live intrauterine . heart rate is 121 beats per minute. Position is cephalic. Placenta is fundal grade II with no abruption or previa. EDUARD is 2.3 cm. (Normal = 5-20 cm.) IMPRESSION: 1. EDUARD is 2.3 cm. Oligohydramnios. RPTAT: QQ .Fish Alcantar MD, MD Date Time Electronically viewed and signed by .Fish Alcantar MD, on 08/18/2016 22:36 .R/
--- NOTE | 2016-08-18 22:36 | RADRPT ---
PROCEDURE: CERVICAL LENGTH ULTRASOUND CLINICAL INDICATION: Abnormal vaginal bleeding. . TECHNIQUE: Trans-vaginal imaging of the cervical canal was performed utilizing sosa-scale imaging. Sagittal and transverse images were obtained. Trans-abdominal images were also obtained. The barbra ges were reviewed on a PACS workstation. COMPARISON: None. FINDINGS: There is a single live intrauterine . heart rate is 125 beats per minute. Position is cephalic and placenta is fundal grade II. There is no placenta previa. The cervix is closed with a length of 3.6 cm. IMPRESSION: 1. Cervical length is 3.6 cm. RPTAT: QQ .Fish Alcantar MD, MD Date Time Electronically viewed and signed by .Fish Alcantar MD, on 08/18/2016 22:35 .R/
[2016-08-19] MEDS: FERROUS SULFATE (EC) 325 MG TAB PO SCH ×2 (08:58→09:44)
[2016-08-19] MEDS: MULTIVIT/MIN/FOLATE/IRON/PREN TAB PO SCH (09:44)
--- NOTE | 2016-08-19 15:22 | QN ---
Documentation Comment pt doing well vss exam wnl ap iup 26.1 pprom minmal bleeding continue care ISHAAN PURDY MD Aug 19, 2016 15:22
[2016-08-19] MEDS: DOCUSATE SODIUM 100 MG CAP PO SCH ×2 (18:07→21:00)
[2016-08-20] MEDS: FERROUS SULFATE (EC) 325 MG TAB PO SCH (08:53)
[2016-08-20] MEDS: MULTIVIT/MIN/FOLATE/IRON/PREN TAB PO SCH (08:53)
[2016-08-20] MEDS: DOCUSATE SODIUM 100 MG CAP PO SCH ×2 (08:53→22:09)
--- NOTE | 2016-08-20 18:21 | QN ---
Documentation Comment pt doing well no complaints vss exam wnl tracing appropiate for GA a/p iup 26.2 oligo/poss pprom continue care poss dc home if no bleeding ISHAAN PURDY MD Aug 20, 2016 18:21
[2016-08-21] MEDS: FERROUS SULFATE (EC) 325 MG TAB PO SCH (08:44)
[2016-08-21] MEDS: MULTIVIT/MIN/FOLATE/IRON/PREN TAB PO SCH (08:44)
[2016-08-21] MEDS: DOCUSATE SODIUM 100 MG CAP PO SCH (08:44)
[2016-08-21] MEDS: MAGNESIUM HYDROXIDE 30ML CUP PO PRN (09:57)
--- NOTE | 2016-08-21 11:56 | PN ---
Date/Time of Note Date/Time of Note DATE: 08/21/16 TIME: 11:49 OB Subjective Subjective Subjective August 21, 2016 OB progress note This patient is now about 26 weeks and 3 days with severe oligohydramnios the last ultrasound 3 days ago reported the EDUARD of 2.3 cm . On examination today she is very comfortable, no contractions, no complaint of pain Her abdomen is soft heart tones normal rebound from 32.4 Extremities are okay no edema no calf tenderness No CVA tenderness no uterine or fundal tenderness She has very little dark discharge not much of a bleeding Current Medications Medications (Trade) Dose Ordered Sig/Nahomi Route PRN Reason Start Time Stop Time Status Last Admin Dose Admin Lactated Ringer's 1,000 ml @ 125 mls/hr Q8H IV 07/23/16 18:30 08/11/16 15:27 DC 07/31/16 11:08 Ampicillin 100 ml @ 100 mls/hr Q6 IV 07/23/16 22:30 07/31/16 10:54 DC 07/31/16 05:38 Erythromycin Lactobionate/ Sodium Chloride (Erythromycin Lactobionate/NS) 100 ml @ 100 mls/hr Q6 IVPB 07/24/16 00:00 07/26/16 14:31 DC 07/26/16 13:01 Docusate Sodium (Colace) 100 mg DAILY PO 07/24/16 09:00 08/10/16 11:35 DC 08/10/16 08:39 Betamethasone Acet/Betameth SodPhos (Celestone Soluspan) 12 mg ONCE ONCE IM 07/24/16 11:30 07/24/16 11:30 DC Betamethasone Acet/Betameth SodPhos (Celestone Soluspan) 30 mg STK-MED ONCE .ROUTE 07/24/16 11:05 07/24/16 11:06 DC Betamethasone Acet/Betameth SodPhos (Celestone Soluspan) 12 mg ONCE IM 07/24/16 12:30 07/24/16 20:00 DC 07/24/16 12:04 Ondansetron HCl 4 mg 4 mg Q4H PRN IV NAUSEA AND/OR VOMITING 07/24/16 12:30 07/26/16 15:08 Magnesium Sulfate 4 gm/Sodium Chloride 108 ml @ 27 mls/hr ONCE ONCE IV 07/24/16 13:30 07/24/16 13:37 DC Magnesium Sulfate 500 ml @ 50 mls/hr Q10H IV 07/24/16 13:30 07/25/16 10:51 DC 07/24/16 23:24 Magnesium Sulfate 100 ml @ 200 mls/hr ONCE ONCE IVPB 07/24/16 14:00 07/24/16 14:29 DC 07/24/16 13:50 Cefazolin Sodium/ Dextrose 50 ml @ 100 mls/hr ONCE IV 07/25/16 08:00 07/25/16 08:58 DC Oxytocin/Lactated Ringer's 500 ml @ 0 mls/hr ONCE PRN IV For Hemorrhage Management 07/25/16 08:00 07/25/16 08:58 DC Methylergonovine Maleate (Methergine) 0.2 mg ONCE PRN IM VAGINAL BLEEDING 07/25/16 08:00 07/25/16 08:58 DC Carboprost Tromethamine (Hemabate) 250 mcg ONCE PRN IM VAGINAL BLEEDING 07/25/16 08:00 07/25/16 08:58 DC Misoprostol 1000 mcg 1,000 mcg ONCE PRN MI VAGINAL BLEEDING 07/25/16 08:00 07/25/16 08:58 DC Cefazolin Sodium/ Dextrose (Ancef 2 Gm/50 ml (Pmx)) 50 ml @ ud STK-MED ONCE IVPB 07/25/16 08:03 07/25/16 08:04 DC Fentanyl (Sublimaze) 100 mcg STK-MED ONCE .ROUTE 07/25/16 08:13 07/25/16 08:14 DC Morphine Sulfate (Duramorph) 10 mg STK-MED ONCE .ROUTE 07/25/16 08:13 07/25/16 08:14 DC Butorphanol Tartrate (Stadol) 2 mg Q2H PRN IV PAIN 07/25/16 11:00 Betamethasone Acet/Betameth SodPhos 12 mg 12 mg ONCE ONCE IM 07/25/16 17:30 07/25/16 17:31 DC 07/25/16 17:19 Dextrose/Lactated Ringer's 1,000 ml @ 125 mls/hr Q8H IV 07/26/16 10:00 07/27/16 21:38 DC 07/26/16 10:05 Gentamicin Sulfate (Gentamicin) 50 ml @ 104 mls/hr Q8H IVPB 07/26/16 22:00 07/31/16 10:55 DC 07/31/16 05:38 Magnesium Hydroxide (Milk Of Mag) 30 ml BID PRN PO CONSTIPATION 07/27/16 21:30 08/21/16 09:57 Bisacodyl (Dulcolax Supp) 10 mg DAILY PRN MI CONSTIPATION 07/27/16 21:30 Magnesium Citrate (Citroma) 300 ml NOW ONCE PO 07/28/16 14:00 07/28/16 14:01 DC 07/28/16 14:16 Miscellaneous Information (*Rx Drug Level Order Reminder*) GENTAMICIN TROUGH AT 2... ONCE XX 07/29/16 18:00 07/29/16 23:30 DC Prenat Multivit/ Personnel Analyst/Iron/Folic Ac ( S) 1 tab DAILY PO 07/31/16 09:00 08/21/16 08:44 Ferrous Sulfate (Ferrous Sulfate (Ec)) 325 mg DAILY PO 07/31/16 09:00 08/21/16 08:44 Vitamin A/Vitamin D (Vitamin A & D Oint) 1 applic PRN PRN TOP dry lips 08/05/16 01:00 08/06/16 22:44 Docusate Sodium (Colace) 100 mg BID PO 08/10/16 12:00 08/10/16 12:00 DC Docusate Sodium (Colace) 100 mg BID PO 08/10/16 21:00 08/21/16 11:42 DC 08/21/16 08:44 Zinc Acetate/ Diphenhydramine (Benadryl 2% Cr) 1 applic ONCE ONCE TOP 08/10/16 19:00 08/10/16 19:01 DC 08/10/16 19:00 Zinc Acetate/ Diphenhydramine (Benadryl 2% Cr) 1 applic Q6H PRN TOP ITCHING 08/10/16 19:00 08/14/16 11:44 Diphenhydramine HCl (Benadryl) 25 mg Q6H PRN PO ITCHING 08/11/16 08:30 Diphenhydramine HCl 50 mg 50 mg Q6H PRN PO ITCHING 08/11/16 08:30 Lactated Ringer's (Lr) 1,000 ml @ 125 mls/hr Q8H IV 08/11/16 15:30 08/11/16 17:09 DC 08/11/16 15:33 Sodium Chloride 2 spray 2 spray ONCE ONCE NASAL 08/13/16 01:00 08/13/16 01:01 DC Lactated Ringer's 1,000 ml @ 150 mls/hr Q6H40M IV 08/13/16 15:30 08/14/16 17:11 DC 08/14/16 07:19 Lactated Ringer's 1,000 ml @ 125 mls/hr Q8H PRN IV IV PROTOCOL 08/14/16 17:08 Lactated Ringer's (Lr) 1,000 ml @ 125 mls/hr Q8H IV 08/15/16 23:30 08/17/16 13:46 DC 08/17/16 07:07 IV Flush (NS 10 ml) 10 ml Q8 IV 08/18/16 18:00 08/20/16 22:09 Magnesium Citrate (Citroma) 300 ml NOW ONCE PO 08/18/16 21:30 08/18/16 21:36 DC 08/18/16 22:12 Her vital signs are stable. At this time she is not receiving any antibiotic. Her max sulfate was stopped days ago heart pattern is normal no evidence of deceleration, good variability is fairly good considering this stage of She does not want to have section for reason For now we will continue her conservative management CYNDY MEJIA MD Aug 21, 2016 11:56
[2016-08-22] MEDS: MULTIVIT/MIN/FOLATE/IRON/PREN TAB PO SCH (11:16)
[2016-08-22] MEDS: FERROUS SULFATE (EC) 325 MG TAB PO SCH (11:16)
--- NOTE | 2016-08-22 17:55 | PN ---
Date/Time of Note Date/Time of Note DATE: 08/22/16 TIME: 17:50 OB Subjective Subjective Subjective Denies any complaint, Comfortable in bed. Reports had scant vaginal bleeding that currently resolved. Has some leaking when she stands up, OB Objective Objective Objective GA: A&O, NAD Abdomen: Soft, no fundal tenderness. fundal height consistent with GA Extremities:,No calf tenderness, no click, no edema FHT: appropriate for GA OB Assessment/Plan Other Assessment: IUP at 26 weeks and 4 days Severe oligohydramnios since 15 weeks, poor out come s/p sterioids x 2 Patient declined section Understands poor out come Per recommendation of M, Dr. Ronquillo, section only for maternal reasons and deliver for chorio or abruption. Currently stable No evidence of chorioamnionitis or abruption Continue expectant management CBC today MARCO JOHANSEN MD Aug 22, 2016 17:55
[2016-08-22 19:26] LABS: ADD SCAN DIFF NO
[2016-08-22 19:28] LABS: BASOPHILS % 0.3 % (0.0-2.0); EOSINOPHILS # 0.4 10^3/ul (0.0-0.5); EOSINOPHILS % 3.1 % (0.0-7.0); HEMATOCRIT 33.3 % (37.0-47.0); HEMOGLOBIN 11.7 g/dl (12.0-16.0); LYMPHOCYTES # 2.3 10^3/ul (0.8-2.9); LYMPHOCYTES % 18.7 % (18.0-55.0); MEAN CORPUSCULAR HEMOGLOBIN 31.9 pg (29.0-33.0); MEAN CORPUSCULAR HGB CONC 35.1 g/dl (32.0-37.0); MEAN CORPUSCULAR VOLUME 90.7 fl (72.0-104.0); MEAN PLATELET VOLUME 9.7 fl (7.4-10.4); MONOCYTE # 0.8 10^3/ul (0.3-0.9); MONOCYTES % 6.1 % (0.0-13.0); NEUTROPHIL # 8.7 10^3/ul (1.6-7.5); NEUTROPHILS % 69.4 % (30.0-74.0); PLATELET COUNT 274 10^3/UL (140-415); RED BLOOD COUNT 3.67 10^6/ul (4.20-5.40); RED CELL DISTRIBUTION WIDTH 13.1 % (11.5-14.5); WHITE BLOOD COUNT 12.5 10^3/ul (4.8-10.8)
[2016-08-22] MEDS: MAGNESIUM HYDROXIDE 30ML CUP PO PRN (20:51)
[2016-08-23] MEDS: FERROUS SULFATE (EC) 325 MG TAB PO SCH (08:55)
[2016-08-23] MEDS: MULTIVIT/MIN/FOLATE/IRON/PREN TAB PO SCH (08:55)
--- NOTE | 2016-08-23 17:44 | PN ---
Date/Time of Note Date/Time of Note DATE: 08/23/16 TIME: 17:38 OB Subjective Subjective Subjective August 23, 2016 Hospital visit This patient is a 20 years old 2 para 0 who is today 26 weeks and 5 7 weeks she was admitted in the hospital at about 22 weeks with gross rupture of membranes and vaginal bleeding She is now fairly stable ,no contractions slight amount of vaginal discharge and vaginal bleeding. Her EDUARD was 12.3 cm on August 18 At this time she is not receiving any medication IV or antibiotic or anything else She wants the management be toward the benefit of the mother for this reason patient refuse delivery or . And we will continue her conservative management Laboratory Tests Test 08/22/16 19:20 White Blood Count 12.510^3/ul Red Blood Count 3.6710^6/ul Hemoglobin 11.7g/dl Hematocrit 33.3% Mean Corpuscular Volume 90.7fl Mean Corpuscular Hemoglobin 31.9pg Mean Corpuscular Hemoglobin Concent 35.1g/dl Red Cell Distribution Width 13.1% Platelet Count 53453^3/UL Mean Platelet Volume 9.7fl Neutrophils % 69.4% Lymphocytes % 18.7% Monocytes % 6.1% Eosinophils % 3.1% Basophils % 0.3% Nucleated Red Blood Cells % 0.0/100WBC Neutrophils # 8.710^3/ul Lymphocytes # 2.310^3/ul Monocytes # 0.810^3/ul Eosinophils # 0.410^3/ul Basophils # 0.010^3/ul Nucleated Red Blood Cells # 0.010^3/ul Current Medications Medications (Trade) Dose Ordered Sig/Nahomi Route PRN Reason Start Time Stop Time Status Last Admin Dose Admin Lactated Ringer's 1,000 ml @ 125 mls/hr Q8H IV 07/23/16 18:30 08/11/16 15:27 DC 07/31/16 11:08 Ampicillin 100 ml @ 100 mls/hr Q6 IV 07/23/16 22:30 07/31/16 10:54 DC 07/31/16 05:38 Erythromycin Lactobionate/ Sodium Chloride (Erythromycin Lactobionate/NS) 100 ml @ 100 mls/hr Q6 IVPB 07/24/16 00:00 07/26/16 14:31 DC 07/26/16 13:01 Docusate Sodium (Colace) 100 mg DAILY PO 07/24/16 09:00 08/10/16 11:35 DC 08/10/16 08:39 Betamethasone Acet/Betameth SodPhos (Celestone Soluspan) 12 mg ONCE ONCE IM 07/24/16 11:30 07/24/16 11:30 DC Betamethasone Acet/Betameth SodPhos (Celestone Soluspan) 30 mg STK-MED ONCE .ROUTE 07/24/16 11:05 07/24/16 11:06 DC Betamethasone Acet/Betameth SodPhos (Celestone Soluspan) 12 mg ONCE IM 07/24/16 12:30 07/24/16 20:00 DC 07/24/16 12:04 Ondansetron HCl 4 mg 4 mg Q4H PRN IV NAUSEA AND/OR VOMITING 07/24/16 12:30 07/26/16 15:08 Magnesium Sulfate 4 gm/Sodium Chloride 108 ml @ 27 mls/hr ONCE ONCE IV 07/24/16 13:30 07/24/16 13:37 DC Magnesium Sulfate 500 ml @ 50 mls/hr Q10H IV 07/24/16 13:30 07/25/16 10:51 DC 07/24/16 23:24 Magnesium Sulfate 100 ml @ 200 mls/hr ONCE ONCE IVPB 07/24/16 14:00 07/24/16 14:29 DC 07/24/16 13:50 Cefazolin Sodium/ Dextrose 50 ml @ 100 mls/hr ONCE IV 07/25/16 08:00 07/25/16 08:58 DC Oxytocin/Lactated Ringer's 500 ml @ 0 mls/hr ONCE PRN IV For Hemorrhage Management 07/25/16 08:00 07/25/16 08:58 DC Methylergonovine Maleate (Methergine) 0.2 mg ONCE PRN IM VAGINAL BLEEDING 07/25/16 08:00 07/25/16 08:58 DC Carboprost Tromethamine (Hemabate) 250 mcg ONCE PRN IM VAGINAL BLEEDING 07/25/16 08:00 07/25/16 08:58 DC Misoprostol 1000 mcg 1,000 mcg ONCE PRN AR VAGINAL BLEEDING 07/25/16 08:00 07/25/16 08:58 DC Cefazolin Sodium/ Dextrose (Ancef 2 Gm/50 ml (Pmx)) 50 ml @ ud STK-MED ONCE IVPB 07/25/16 08:03 07/25/16 08:04 DC Fentanyl (Sublimaze) 100 mcg STK-MED ONCE .ROUTE 07/25/16 08:13 07/25/16 08:14 DC Morphine Sulfate (Duramorph) 10 mg STK-MED ONCE .ROUTE 07/25/16 08:13 07/25/16 08:14 DC Butorphanol Tartrate (Stadol) 2 mg Q2H PRN IV PAIN 07/25/16 11:00 Betamethasone Acet/Betameth SodPhos 12 mg 12 mg ONCE ONCE IM 07/25/16 17:30 07/25/16 17:31 DC 07/25/16 17:19 Dextrose/Lactated Ringer's 1,000 ml @ 125 mls/hr Q8H IV 07/26/16 10:00 07/27/16 21:38 DC 07/26/16 10:05 Gentamicin Sulfate (Gentamicin) 50 ml @ 104 mls/hr Q8H IVPB 07/26/16 22:00 07/31/16 10:55 DC 07/31/16 05:38 Magnesium Hydroxide (Milk Of Mag) 30 ml BID PRN PO CONSTIPATION 07/27/16 21:30 08/22/16 20:51 Bisacodyl (Dulcolax Supp) 10 mg DAILY PRN AR CONSTIPATION 07/27/16 21:30 Magnesium Citrate (Citroma) 300 ml NOW ONCE PO 07/28/16 14:00 07/28/16 14:01 DC 07/28/16 14:16 Miscellaneous Information (*Rx Drug Level Order Reminder*) GENTAMICIN TROUGH AT 2... ONCE XX 07/29/16 18:00 07/29/16 23:30 DC Prenat Multivit/ Plastic Parts Fabricator/Iron/Folic Ac ( S) 1 tab DAILY PO 07/31/16 09:00 08/23/16 08:55 Ferrous Sulfate (Ferrous Sulfate (Ec)) 325 mg DAILY PO 07/31/16 09:00 08/23/16 08:55 Vitamin A/Vitamin D (Vitamin A & D Oint) 1 applic PRN PRN TOP dry lips 08/05/16 01:00 08/06/16 22:44 Docusate Sodium (Colace) 100 mg BID PO 08/10/16 12:00 08/10/16 12:00 DC Docusate Sodium (Colace) 100 mg BID PO 08/10/16 21:00 08/21/16 11:42 DC 08/21/16 08:44 Zinc Acetate/ Diphenhydramine (Benadryl 2% Cr) 1 applic ONCE ONCE TOP 08/10/16 19:00 08/10/16 19:01 DC 08/10/16 19:00 Zinc Acetate/ Diphenhydramine (Benadryl 2% Cr) 1 applic Q6H PRN TOP ITCHING 08/10/16 19:00 08/14/16 11:44 Diphenhydramine HCl (Benadryl) 25 mg Q6H PRN PO ITCHING 08/11/16 08:30 Diphenhydramine HCl 50 mg 50 mg Q6H PRN PO ITCHING 08/11/16 08:30 Lactated Ringer's (Lr) 1,000 ml @ 125 mls/hr Q8H IV 08/11/16 15:30 08/11/16 17:09 DC 08/11/16 15:33 Sodium Chloride 2 spray 2 spray ONCE ONCE NASAL 08/13/16 01:00 08/13/16 01:01 DC Lactated Ringer's 1,000 ml @ 150 mls/hr Q6H40M IV 08/13/16 15:30 08/14/16 17:11 DC 08/14/16 07:19 Lactated Ringer's 1,000 ml @ 125 mls/hr Q8H PRN IV IV PROTOCOL 08/14/16 17:08 Lactated Ringer's (Lr) 1,000 ml @ 125 mls/hr Q8H IV 08/15/16 23:30 08/17/16 13:46 DC 08/17/16 07:07 IV Flush (NS 10 ml) 10 ml Q8 IV 08/18/16 18:00 08/21/16 12:25 DC 08/20/16 22:09 Magnesium Citrate (Citroma) 300 ml NOW ONCE PO 08/18/16 21:30 08/18/16 21:36 DC 08/18/16 22:12 CYNDY MEJIA MD Aug 23, 2016 17:43
[2016-08-24] MEDS: FERROUS SULFATE (EC) 325 MG TAB PO SCH (09:20)
[2016-08-24] MEDS: MULTIVIT/MIN/FOLATE/IRON/PREN TAB PO SCH (09:20)
[2016-08-24] MEDS ORDERED: MAGNESIUM CITRATE 300 ML BTL PO ONE (12:00)
--- NOTE | 2016-08-24 13:33 | QN ---
Documentation Comment IUP at 26 weeks and 6days Severe oligohydramnios since 15 weeks, poor out come s/p sterioids x 2 Patient declined section Understands poor out come Per recommendation of [facility], Dr. Ronquillo, section only for maternal reasons and deliver for chorio or abruption. Currently stable No evidence of chorioamnionitis or abruption --->As per her Insurance company's request the patient is transferred to [facility] accepted [facility] transfer BRYAN BUTTS M.D. Aug 24, 2016 13:33
--- NOTE | 2016-08-24 13:34 | DS ---
Date/Time of Note Date/Time of Note DATE: 08/24/16 TIME: 13:34 Discharge Summary Admission/Discharge Info Admit Date/Time Jul 23, 2016 at 21:00 Discharge Date/Time Aug Final Diagnosis IUP at 26 weeks and 6days Severe oligohydramnios since 15 weeks, poor out come s/p sterioids x 2 Patient declined section Understands poor out come Per recommendation of [facility], Dr. Ronquillo, section only for maternal reasons and deliver for chorio or abruption. Currently stable No evidence of chorioamnionitis or abruption --->As per her Insurance company's request the patient is transferred to [facility] accepted the transfer Patient Condition: Stable Hospital Course Uneventful Home Meds Reported Medications Multivit/Min/Fol Ac/Iron/Pren* ( S*) 1 Tab Tab, 1 TAB PO DAILY, TAB 07/23/16 Follow-up Plan Transferred to [facility] BRYAN BUTTS M.D. Aug 24, 2016 13:34
== END 2016-08-24 20:17 | disposition short-term general hospital (02) | DRG 781 ==
LOC: L-D 17:18 → OBT 17:18 → OBG 21:00 → L-D 07-25 07:50 → OBG 07-27 16:04 → L-D 08-13 17:59 → OBG 08-14 17:17 → L-D 08-15 22:43 → OBG 08-18 12:07
PROVIDERS: ADMIT Obstetrics & Gynecology; ATTEND Obstetrics & Gynecology
DX: O42.912 Preterm premature rupture of membranes, unspecified as to length of time between rupture and onset of labor, second trimester (principal); O99.612 Diseases of the digestive system complicating pregnancy, second trimester; K59.00 Constipation, unspecified; O99.342 Other mental disorders complicating pregnancy, second trimester; F41.9 Anxiety disorder, unspecified; O46.92 Antepartum hemorrhage, unspecified, second trimester; O76 Abnormality in fetal heart rate and rhythm complicating labor and delivery; Z3A.22 22 weeks gestation of pregnancy
CPT/HCPCS: 36415; 76815; 76816; 76817; 80053; 80170; 80307; 81001; 81003; 83735; 84112; 85025; 85384; 86850; 86900; 86901; 87086; G0463; J0290; J0690; J0702; J1364; J1580; J2274; J2405; J2590; J3010; J3475; J7120; J7121

== ENCOUNTER 2016-08-31 04:04 | Emergency (ER) | payer BC ==
[~2016-08-31] VITALS: Ht 157.5 cm; Wt 59.1 kg
[~2016-08-31 04:04] MED LIST: PRENAT PO
[2016-08-31 04:08] VITALS: Ht 157.5 cm; Wt 59.1 kg
[2016-08-31 04:25] VITALS: BP 124/66; PULSE 108; RESP 22
[2016-08-31] MEDS ORDERED: SODIUM CHLORIDE 0.9% 1L BAG IV* STA (04:25)
[2016-08-31] MEDS ORDERED: ONDANSETRON 4 MG INJ IV STA (04:25)
[2016-08-31] MEDS ORDERED: ACETAMINOPHEN 325 MG TAB PO STA (04:25)
[2016-08-31] MEDS ORDERED: morphine 2 MG INJ IV ONE (04:30)
--- NOTE | 2016-08-31 04:49 | ERA ---
ER Documentation Chief Complaint Date/Time DATE: 08/31/16 TIME: 04:46 Chief Complaint abdominal pain HPI The patient is a 20-year-old female, presenting to the ER because of abdominal pain. She had a 3 days ago at [facility] and was discharged today. However she was not discharged with any pain medication. She took [place] and ibuprofen where she was hospitalized. She complains of constipation and painful urination. She denies neck pain, chest pain,, vomiting. She does not smoke, drink Past medical history: None Past surgical history: , jaw surgery ROS All systems reviewed and are negative except as per history of present illness. Medications Home Meds Active Scripts Polyethylene Glycol* (Miralax*) 17 Gm Powd.pack, 17 GM PO DAILY, #7 Prov:CAHRLIE MUÑOZ MD 08/31/16 Ibuprofen* (Motrin*) 600 Mg Tab, 600 MG PO Q6H Y for PAIN AND OR ELEVATED TEMP, #30 TAB Prov:CHARLIE MUÑOZ MD 08/31/16 Cephalexin* (Keflex*) 500 Mg Capsule, 500 MG PO QID for 10 Days, CAP Prov:CHARLIE MUÑOZ MD 08/31/16 Reported Medications Multivit/Min/Fol Ac/Iron/Pren* ( S*) 1 Tab Tab, 1 TAB PO DAILY, TAB 07/23/16 Allergies Allergies: Coded Allergies: bismuth subsalicylate (Verified Allergy, Unknown, RASH, 07/26/16) Physical Exam Vitals Vital Signs Date Time Temp Pulse Resp B/P Pulse Ox O2 Delivery O2 Flow Rate FiO2 08/31/16 05:28 102.4 08/31/16 04:25 103.1 108 22 124/66 100 Nasal Cannula 2.0 08/31/16 04:25 Nasal Cannula 2 08/31/16 04:08 99.1 100 18 113/69 98 Physical Exam Const: No acute distress. Head: Atraumatic. Eyes: Normal Conjunctiva. ENT: Normal External Ears, Nose and Mouth. Neck: Full range of motion. No meningismus. Resp: Clear to auscultation bilaterally. Cardio: Regular rate and rhythm, no murmurs. Abd: Soft, non distended, normal bowel sounds, diffuse and vague abdominal discomfort, lower abdominal incision is healing well, no erythema, no crepitus Skin: No petechiae or rashes. Back: No midline or flank tenderness. Ext: No cyanosis, or edema. Neur: Awake and alert. No focal deficit Psych: Normal Mood and Affect. Result Diagram: 08/31/1642908/31/16 0430 Results 24 hrs Laboratory Tests Test 08/31/16 04:30 08/31/16 05:26 White Blood Count 12.810^3/ul Red Blood Count 3.0310^6/ul Hemoglobin 9.7g/dl Hematocrit 28.3% Mean Corpuscular Volume 93.4fl Mean Corpuscular Hemoglobin 32.0pg Mean Corpuscular Hemoglobin Concent 34.3g/dl Red Cell Distribution Width 13.4% Platelet Count 95375^3/UL Mean Platelet Volume 9.6fl Neutrophils % 71.7% Lymphocytes % 15.8% Monocytes % 8.2% Eosinophils % 0.2% Basophils % 0.2% Nucleated Red Blood Cells % 0.2/100WBC Neutrophils # 9.110^3/ul Lymphocytes # 2.010^3/ul Monocytes # 1.110^3/ul Eosinophils # 0.010^3/ul Basophils # 0.010^3/ul Nucleated Red Blood Cells # 0.010^3/ul Prothrombin Time 12.4Sec Prothrombin Time Ratio 1.0 INR International Normalized Ratio 0.92 Activated Partial Thromboplast Time 29.3Sec Sodium Level 140mmol/L Potassium Level 3.4mmol/L Chloride Level 100mmol/L Carbon Dioxide Level 27mmol/L Anion Gap 16 Blood Urea Nitrogen 11mg/dl Creatinine 0.63mg/dl Glucose Level 92mg/dl Lactic Acid Level 0.9mmol/L Calcium Level 9.5mg/dl Total Bilirubin 0.2mg/dl Direct Bilirubin 0.00mg/dl Indirect Bilirubin 0.2mg/dl Aspartate Amino Transf (AST/SGOT) 26IU/L Alanine Aminotransferase (ALT/SGPT) 22IU/L Alkaline Phosphatase 115IU/L Troponin I < 0.012ng/ml Total Protein 7.5g/dl Albumin 3.9g/dl Globulin 3.60g/dl Albumin/Globulin Ratio 1.08 Bedside Urine pH (LAB) 7.5 Bedside Urine Protein (LAB) Negative Bedside Urine Glucose (UA) Negative Bedside Urine Ketones (LAB) Negative Bedside Urine Blood 3+ Bedside Urine Nitrite (LAB) Negative Bedside Urine Leukocyte Esterase (L Trace Current Medications Medications (Trade) Dose Ordered Sig/[place] Route PRN Reason Start Time Stop Time Status Last Admin Dose Admin Sodium Chloride (NS) 1,830 ml BOLUS OVER 2 HOURS STAT IV* 08/31/16 04:25 08/31/16 04:27 DC 08/31/16 04:48 Acetaminophen (Tylenol Tab) 650 mg ONCE STAT PO 08/31/16 04:25 08/31/16 04:27 DC 08/31/16 04:47 Morphine Sulfate (morphine) 2 mg ONCE ONCE IV 08/31/16 04:30 08/31/16 04:31 DC 08/31/16 04:46 Ondansetron HCl (Zofran Inj) 4 mg ONCE STAT IV 08/31/16 04:25 08/31/16 04:27 DC 08/31/16 04:47 Ketorolac Tromethamine (Toradol) 30 mg ONCE ONCE IV 08/31/16 04:54 08/31/16 04:55 DC 08/31/16 04:58 Potassium Chloride (Klor-Con 20) 20 meq ONCE STAT PO 08/31/16 05:36 08/31/16 05:37 DC Procedures/[place] [id number] Radiology Main Line: [phone] DIAGNOSTIC IMAGING REPORT Patient: MARILYN VARGAS : 1995 Age: 20 Sex: F MR #: [id number] DOS: 08/31/16 0425 Ordering MD: CHARLIE MUÑOZ MD Location: E/R Room/Bed: PROCEDURE: CHEST - 1 VIEW CLINICAL INDICATION: 20-year-old female with shortness of breath and sepsis. TECHNIQUE: A single frontal AP portable view of the chest was performed. The images were reviewed on a PACS workstation. COMPARISON: None. FINDINGS: The cardiomediastinal silhouette has a normal appearance. There is no evidence for an infiltrate. The pulmonary vascularity is within normal limits. There is no evidence for pneumothorax or pneumomediastinum. The osseous structures are intact. IMPRESSION: No evidence for active cardiopulmonary disease. .Daron Pearce MD, MD Date Time Electronically viewed and signed by .Daron Pearce MD, MD on 08/31/2016 04:49 .M/ CC: CHARLIE MUÑOZ MD EKG: Read by emergency physician Rate/Rhythm: Normal Sinus Rhythm 94 beats/min QRS, ST, T-waves: No ST elevation, no T inversion, sinus arrhythmia Impression: Normal EKG MEDICAL MAKING DECISION: The patient is a 20-year-old female, presenting with acute postoperative pain, acute cystitis, acute hypokalemia, acute constipation. She was treated with Tylenol and for fever, morphine 2 mg IV, Toradol 30 mg IV for pain, Zofran formula IV for nausea and normal saline 30 mL/ kg IV for acute clinical dehydration good response. On multiple reevaluation, she felt well. Repeat abdominal exams were unremarkable The differential diagnoses considered include but are not limited to cholelithiasis, cholecystitis, cystitis, pancreatitis, hepatitis, gastritis, peptic ulcer disease, gastric ulcer, appendicitis, diverticulitis, cholangitis, choledocholithiasis, partial small bowel obstruction. Departure Diagnosis: Primary Impression: Post-op pain Additional Impressions: UTI (urinary tract infection) Hypokalemia Constipation Anemia Condition: Good Comments She was discharged with Keflex, Motrin, MiraLAX I discussed the findings with the patient. I advised the patient to follow-up with the primary physician in about 1-2 days, sooner if needed and return if any concern. CHARLIE MUÑOZ MD Aug 31, 2016 04:49
--- NOTE | 2016-08-31 04:50 | RADRPT ---
PROCEDURE: CHEST - 1 VIEW CLINICAL INDICATION: 20-year-old female with shortness of breath and sepsis. TECHNIQUE: A single frontal AP portable view of the chest was performed. The images were reviewed on a PACS workstation. COMPARISON: None. FINDINGS: The cardiomediastinal silhouette has a normal appearance. There is no evidence for an infiltrate. T he pulmonary vascularity is within normal limits. There is no evidence for pneumothorax or pneumomed iastinum. The osseous structures are intact. IMPRESSION: No evidence for active cardiopulmonary disease. .Daron Pearce MD, MD Date Time Electronically viewed and signed by .Daron Pearce MD, on 08/31/2016 04:49 .M/
[2016-08-31] MEDS ORDERED: KETOROLAC 30 MG INJ IV ONE (04:54)
[2016-08-31 05:01] LABS: ADD SCAN DIFF NO
[2016-08-31 05:02] LABS: BASOPHILS % 0.2 % (0.0-2.0); EOSINOPHILS % 0.2 % (0.0-7.0); HEMATOCRIT 28.3 % (37.0-47.0); HEMOGLOBIN 9.7 g/dl (12.0-16.0); LYMPHOCYTES % 15.8 % (18.0-55.0); MEAN CORPUSCULAR HGB CONC 34.3 g/dl (32.0-37.0); MEAN CORPUSCULAR VOLUME 93.4 fl (72.0-104.0); MEAN PLATELET VOLUME 9.6 fl (7.4-10.4); MONOCYTE # 1.1 10^3/ul (0.3-0.9); MONOCYTES % 8.2 % (0.0-13.0); NEUTROPHIL # 9.1 10^3/ul (1.6-7.5); NEUTROPHILS % 71.7 % (30.0-74.0); NUCLEATED RED BLOOD CELLS% 0.2 /100WBC (0.0-0.0); PLATELET COUNT 256 10^3/UL (140-415); RED BLOOD COUNT 3.03 10^6/ul (4.20-5.40); RED CELL DISTRIBUTION WIDTH 13.4 % (11.5-14.5); WHITE BLOOD COUNT 12.8 10^3/ul (4.8-10.8)
[2016-08-31 05:15] LABS: ALBUMIN 3.9 g/dl (3.3-4.9); CHLORIDE 100 mmol/L (97-110); SODIUM 140 mmol/L (135-144)
[2016-08-31 05:16] LABS: POTASSIUM 3.4 mmol/L (3.5-5.1)
[2016-08-31 05:17] LABS: INR 0.92; PARTIAL THROMBOPLASTIN TIME 29.3 Sec (25.0-35.0); PROTIME 12.4 Sec (12.2-14.2)
[2016-08-31 05:18] LABS: ALANINE AMINOTRANSFERASE 22 IU/L (13-69); ALBUMIN/GLOBULIN RATIO 1.08; ALKALINE PHOSPHATASE 115 IU/L (42-121); ANION GAP 16 (8-16); ASPARTATE AMINO TRANSFERASE 26 IU/L (15-46); BILIRUBIN,INDIRECT 0.2 mg/dl (0-1.1); BILIRUBIN,TOTAL 0.2 mg/dl (0.2-1.3); BLOOD UREA NITROGEN 11 mg/dl (7-20); CARBON DIOXIDE 27 mmol/L (21-31); CREATININE 0.63 mg/dl (0.44-1.00); GLUCOSE 92 mg/dl (70-220); TOTAL PROTEIN 7.5 g/dl (6.1-8.1)
[2016-08-31 05:19] LABS: CALCIUM 9.5 mg/dl (8.4-10.2)
[2016-08-31 05:26] LABS: URINE BLOOD (Dip) POC 3+ (NEGATIVE)
[2016-08-31 05:31] LABS: TROPONIN-I < 0.012 ng/ml (0.00-0.12)
[2016-08-31] MEDS ORDERED: IBUP-1542 PO (05:35)
[2016-08-31] MEDS ORDERED: CEPH-443 PO (05:35)
[2016-08-31] MEDS ORDERED: POTASSIUM CHLORIDE (SR) 20 MEQ TAB PO STA (05:36)
[2016-08-31] MEDS ORDERED: POLY17PO6 PO (05:36)
[2016-08-31 05:50] VITALS: TEMP 100.9
[2016-08-31 05:52] LABS: ADD UMIC YES; URINE BILIRUBIN (Dip) NEGATIVE (NEGATIVE); URINE BLOOD (Dip) 3+ (NEGATIVE); URINE COLOR LT. YELLOW (YELLOW); URINE GLUCOSE (Dip) NEGATIVE (NEGATIVE); URINE KETONES (Dip) NEGATIVE (NEGATIVE); URINE LEUKOCYTE ESTERASE (Dip) TRACE (NEGATIVE); URINE NITRITE (Dip) NEGATIVE (NEGATIVE); URINE TOTAL PROTEIN (Dip) NEGATIVE (NEGATIVE); URINE UROBILINOGEN (Dip) 0.2 E.U./dL (0.1-1.0)
[2016-08-31 06:51] LABS: URINE RBCS 25-50 /HPF (0)
== END 2016-08-31 06:10 | disposition home or self-care (01) ==
LOC: E/R 04:04
DX: G89.18 Other acute postprocedural pain (principal); R10.84 Generalized abdominal pain; N39.0 Urinary tract infection, site not specified; E87.6 Hypokalemia; K59.00 Constipation, unspecified; D64.9 Anemia, unspecified
CPT/HCPCS: 71010; 80053; 81001; 81003; 83605; 84484; 85025; 85610; 85730; 87040; 87086; 93005; J1885; J2270; J2405; J7030; Z7610; 36415; 96374; 96375

== ENCOUNTER 2016-11-17 00:09 | Emergency (ER) | payer SELFPAY ==
[~2016-11-17] VITALS: Ht 157.5 cm; Wt 55.5 kg
[~2016-11-17 00:09] MED LIST changes: +CEPH-443 PO; +IBUP-1542 PO; +POLY17PO6 PO
[2016-11-17 00:14] VITALS: Ht 157.5 cm; Wt 55.5 kg
--- NOTE | 2016-11-17 00:41 | ERA ---
ER Documentation Chief Complaint Date/Time DATE: 11/17/16 TIME: 00:41 Chief Complaint painful urination HPI The patient is a 20-year-old female, presenting to the ER because of suprapubic abdominal pain and painful urination that began today. She has similar symptoms previously, denies fever, chills, neck pain, chest pain, abdominal pain , vomiting, diarrhea. She does not smoke nor drink but smoked marijuana Past medical history: None Past surgical history: ROS All systems reviewed and are negative except as per history of present illness. Medications Home Meds Active Scripts Sulfamethoxazole/Trimethoprim* (Bactrim Ds* Tablet) 1 Each Tablet, 1 TAB PO BID , #14 TAB Prov:CHARLIE MUÑOZ MD 11/17/16 Polyethylene Glycol* (Miralax*) 17 Gm Powd.pack, 17 GM PO DAILY, #7 Prov:CHARLIE MUÑOZ MD 08/31/16 Ibuprofen* (Motrin*) 600 Mg Tab, 600 MG PO Q6H Y for PAIN AND OR ELEVATED TEMP, #30 TAB Prov:CHARLIE MUÑOZ MD 08/31/16 Cephalexin* (Keflex*) 500 Mg Capsule, 500 MG PO QID for 10 Days, CAP Prov:CHARLIE MUÑOZ MD 08/31/16 Reported Medications Multivit/Min/Fol Ac/Iron/Pren* ( S*) 1 Tab Tab, 1 TAB PO DAILY, TAB 07/23/16 Allergies Allergies: Coded Allergies: bismuth subsalicylate (Verified Allergy, Unknown, RASH, 07/26/16) PMhx/Soc History of Surgery: Yes (csection, jaw surgery) Anesthesia Reaction: No Hx Neurological Disorder: No Hx Respiratory Disorders: No Hx Cardiac Disorders: No Hx Psychiatric Problems: No Hx Miscellaneous Medical Probl: No Hx Alcohol Use: No Hx Substance Use: No Hx Tobacco Use: No Physical Exam Vitals Vital Signs Date Time Temp Pulse Resp B/P Pulse Ox O2 Delivery O2 Flow Rate FiO2 11/17/16 00:14 97.8 72 18 112/54 96 Physical Exam Const: No acute distress. Head: Atraumatic. Eyes: Normal Conjunctiva. ENT: Normal External Ears, Nose and Mouth. Neck: Full range of motion. No meningismus. Resp: Clear to auscultation bilaterally. Cardio: Regular rate and rhythm. Abd: Soft, non distended, normal bowel sounds, mild suprapubic tenderness, no right lower quadrant, right upper quadrant, epigastric, CVA tenderness Skin: No petechiae or rashes. Back: No midline or flank tenderness. Ext: No cyanosis, or edema. Neur: Awake and alert. No focal deficit Psych: Normal Mood and Affect. Results 24 hrs Laboratory Tests Test 11/17/16 01:06 Bedside Urine pH (LAB) 5.5 Bedside Urine Protein (LAB) Negative Bedside Urine Glucose (UA) Negative Bedside Urine Ketones (LAB) Negative Bedside Urine Blood 1+ Bedside Urine Nitrite (LAB) Negative Bedside Urine Leukocyte Esterase (L 2+ Procedures/MDM MEDICAL MAKING DECISION: The patient is a 20-year-old female, presenting with acute cystitis. She is stable for outpatient follow-up The differential diagnoses considered include but are not limited to cholelithiasis, cholecystitis, cystitis, pancreatitis, hepatitis, gastritis, peptic ulcer disease, gastric ulcer, appendicitis, diverticulitis, cholangitis, choledocholithiasis, partial small bowel obstruction, PID, ovarian cyst, ovarian torsion. Departure Diagnosis: Primary Impression: UTI (urinary tract infection) Condition: Good Comments She was discharged with Bactrim DS I discussed the findings with the patient. I advised the patient to follow-up with the primary physician in about 1-2 days, sooner if needed and return if any concern. CHARLIE MUÑOZ MD Nov 17, 2016 00:41
[2016-11-17 01:01] LABS: URINE BLOOD (Dip) POC 1+ (NEGATIVE)
[2016-11-17] MEDS ORDERED: SULF1TAB31 PO (01:39)
== END 2016-11-17 01:46 | disposition home or self-care (01) ==
LOC: FTE 00:09
DX: N39.0 Urinary tract infection, site not specified (principal)
CPT/HCPCS: 81003; 99283